=== PATIENT | female | born 1990 | race Caucasian/White ===

== ENCOUNTER 2022-12-12 20:33 | Emergency (ER) | payer OTHER ==
[2022-12-12 21:01] VITALS: BP 123/52
--- NOTE | 2022-12-12 21:24 | ED Physician Documentation ---
History of Present Illness - Stated complaint Stated Complaint: FACIAL RASH/SWELLING - Chief complaint Chief Complaint: Wound - Additonal information Additional information: 32-year-old female presents emergency department for evaluation of concerns lip tingling/burning and mild swelling as well as tongue tingling. Patient had eaten dinner this evening which consisted of left over refried rice vegetables and ground beef with soy sauce. Shortly after she began to notice a burning and tingling in her lips. She looked in the mirror and thought that her lower lip was mildly swollen. She also felt burning in her tongue. She did apply ice to the lip. Currently 23 weeks . LMP 07/07/2022. G4, . Currently taking 162 mg of aspirin daily as prophylaxis in high risk . Patient recently moved to the [place] 3 weeks ago and is scheduled to establish with Brenda Chatman this upcoming Tuesday. Patient does have movement. No vaginal bleeding or loss of fluids. At baseline patient does have a geographic tongue. Per her her tongue does not appear swollen in comparison to baseline. Review of Systems Constitutional: denies: Fever, Chills Throat: reports: Other (Burning lips mild lip swelling. Tingling tongue) Cardiac: reports: Reviewed and negative Respiratory: reports: Reviewed and negative PD PAST MEDICAL HISTORY - Present Medications Home Medications: Ambulatory Orders Medication Instructions Recorded Confirmed Aspirin Chewable [St Van 2 tab PO DAILY 12/12/22 12/12/22 Aspirin] Pnv No.95/Ferrous Fum/Folic AC 1 tab PO DAILY 12/12/22 12/12/22 [ Tablet] - Allergies Allergies/Adverse Reactions: Allergies Allergy/AdvReac Type Severity Reaction Status Date / Time No Known Drug Allergies Allergy Verified 12/12/22 20:59 PD ED PE NORMAL - General General: Alert and oriented X 3, No acute distress. No: Well developed/nourished (Obese) - HEENT HEENT: Atraumatic, Moist mucous membranes, Pharynx benign, Other (No tongue or lip swelling noted. Patient does have a geographic tongue.) - Neck Neck: Supple, no meningeal sign, No adenopathy, No JVD - Abdomen Abdomen: Normal bowel sounds, Soft. No: Non tender (Uterus is palpable just at the level of the umbilicus. Limited bedside ultrasound reveals positive movement with a heart rate of 170.) - Back Back: No CVA TTP - Derm Derm: Normal color, Warm and dry, No rash - Extremities Extremities: No deformity - Neuro Neuro: Alert and oriented X 3, binder chainstitch 2-12 intact Eye Opening: Spontaneous Motor: Obeys Commands Verbal: Oriented GCS Score: 15 Results - Vitals Vitals: Vital Signs - 24 hr 12/12/22 20:55 Heart Rate 64 Respiratory 16 Rate Blood Pressure 123/52 L O2 Saturation 95 Oxygen O2 Source Room air PD Medical Decision Making - ED course Complexity details: considered differential, d/w patient, d/w family ED course: 32-year-old female who is 23 weeks presents to the ED for concerns of tongue and lip burning as well as mild tongue and lip swelling which has fully abated by the time of my evaluation. This follows eating some leftovers. She does not have any previous allergy history. On exam clinically there is nothing to suggest angioedema or anaphylaxis. She does have a geographic tongue at baseline and her reports that appears normal. She has no dysphonia labored breathing hypoxia or chest pain. I did do a limited brief ultrasound at the bedside and found a fetus with good movement and a heart rate measuring about 172. At this time clinically the patient does not appear to have any tongue or lip swelling. She may have had a brief allergic reaction that is fully dissipated at this juncture. As such she is discharged home. Recommended that if a similar event occurred it would be safe to take 25 mg of Benadryl and then return to the ER for reevaluation. She will follow closely with OB this upcoming Tuesday. Discharged home in stable condition with emergent return precautions Departure - Departure Disposition: 01 Home, Self Care Clinical Impression: Lip swelling Condition: Stable Record reviewed to determine appropriate education?: Yes Comments: Juan you are seen today because after eating dinner and you developed some burning in your lips and tongue and felt that your lip had been swollen. At the time of my exam here in the emergency department I do not notice any tongue or lip swelling. It is possible however that you had a brief allergic reaction that has fully subsided. I recommend That if you have a return of similar symptoms its okay to take a dose of Benadryl and then return to the ER. The limited ultrasound that we did the bedside today shows that the baby had good movement and normal heart rate. Continue to follow-up with Brenda Chatman on Tuesday as already scheduled.
== END 2022-12-12 21:42 | disposition home or self-care (01) ==
LOC: ED 20:33
DX: O99.891 Other specified diseases and conditions complicating pregnancy (principal); R22.0 Localized swelling, mass and lump, head; Z3A.23 23 weeks gestation of pregnancy
CPT/HCPCS: 99283

== ENCOUNTER 2022-12-22 06:38 | Outpatient (CLI) | payer OTHER ==
[2022-12-22 07:46] VITALS: BP 126/67
[2022-12-22 08:14] LABS: BILIRUBIN,URINE NEGATIVE (NEGATIVE); GLUCOSE, URINE (UA) NEGATIVE (NEGATIVE); KETONES,URINE (UA) NEGATIVE (NEGATIVE); LEUKOCYTE ESTERASE, URINE NEGATIVE (NEGATIVE); NITRITE,URINE NEGATIVE (NEGATIVE); OCCULT BLOOD,URINE NEGATIVE (NEGATIVE); PROTEIN,URINE NEGATIVE (NEGATIVE); UROBILINOGEN,URINE 0.2 (NORMAL) E.U./dL (NORMAL)
[2022-12-22 08:15] LABS: CLARITY,URINE CLEAR (CLEAR)
--- NOTE | 2022-12-22 08:51 | Labor Flowsheet ---
Labor Flowsheet Datetime Report Generated by CPN: 12/22/2022 08:51 Datetime: 12/22/2022 07:30 VITAL SIGNS NBP Sys/Bobbi/Mean (mmHg): 126 : 67 : 82 Pulse: 76
--- NOTE | 2022-12-22 09:54 | PROVIDER PROGRESS NOTE ---
- HPI Chief Complaint: Vaginal bleeding Current : Vital Signs Temperature 37.2 C 12/22/22 07:20 Heart Rate 74 12/22/22 07:20 Respiratory Rate 18 12/22/22 07:20 Blood Pressure 126/67 12/22/22 07:20 Temperature 37.2 C 12/22/22 08:10 Heart Rate 74 12/22/22 08:10 Respiratory Rate 18 12/22/22 08:10 Blood Pressure 126/67 12/22/22 08:10 O2 Saturation If not protocol: Oxygen Flow, liters/minute - Plan Plan: Juan presents today with c/o pressure and cramping in her lower abdomen in addition to new onset vaginal spotting this morning. She has been struggling with constipation for the past several weeks and has attempted to increase her fluid and fiber intake which has not helped in any significant way. She states last night she was straining with a bowel movement and felt something "bulge". It was difficult for her see so she had her look and he said it looked like there was something coming out of her vagina. She states she touched it with her finger and felt like it was more on her left than her right. She then became concerned that she may have caused some sort of infection from touching the area. She has a hx of UTIs in which have all been asymptomatic. She noticed the vaginal spotting when she was wiping after urinating. She is sure the bleeding was vaginal rather than rectal. She denies hemorrhoids. She denies urinary symptoms. She was able to mix mirilax in prune juice this morning and had a bowel movement which was softer. Vaginal examination reveals normal vaginal, perineal, and rectal tissues externally. No evidence of swelling or visible abnormality. Vaginal examination reveals normal vaginal tissue with normal vaginal discharge. No evidence of trauma or prolapse. Cervix appears closed, thick, and high. With bearing down a mild anterior cystocele is noted. FHR 130bpm Tocometry - no uterine contractions noted UA -collecting, results pending Plan: Pt released home with precautions. Has emergency contact information. Recommended daily stool softening or miriliax. Will treat for UTI if indicated by UA - will notify pt of results once received. Pt feels reassured. FINAL DIAGNOSIS: Constipation
== END 2022-12-22 08:10 | disposition home or self-care (01) ==
LOC: WFO 06:38 → FBP 06:43 → WFO 08:10
PROVIDERS: ATTEND Nurse Practitioner Obstetrics & Gynecology
DX: O26.859 Spotting complicating pregnancy, unspecified trimester (principal); O99.619 Diseases of the digestive system complicating pregnancy, unspecified trimester; K59.00 Constipation, unspecified; O34.80 Maternal care for other abnormalities of pelvic organs, unspecified trimester; N81.10 Cystocele, unspecified
CPT/HCPCS: 81001; 81003; 87086; 99213; 99214

== ENCOUNTER 2022-12-31 18:30 | Outpatient (CLI) | payer OTHER ==
[2022-12-31 19:09] VITALS: BP 107/44
[2022-12-31 19:21] LABS: RUPTURE OF MEMBRANES PLUS NEGATIVE (NEGATIVE)
--- NOTE | 2023-01-03 13:37 | PROVIDER PROGRESS NOTE ---
- HPI Chief Complaint: Leakage of vaginal fluid Current : Vital Signs Temperature 36.9 C 12/31/22 19:07 Heart Rate 70 12/31/22 19:07 Respiratory Rate 16 12/31/22 19:07 Blood Pressure 107/44 L 12/31/22 19:07 O2 Saturation 100 12/31/22 19:07 Temperature 36.9 C 12/31/22 19:07 Heart Rate 70 12/31/22 19:07 Respiratory Rate 16 12/31/22 19:07 Blood Pressure 107/44 L 12/31/22 19:07 O2 Saturation 100 12/31/22 19:07 If not protocol: Oxygen Flow, liters/minute - Procedures OB Procedure Performed: Other Diagnosis/Indication for NST: Other - Plan Plan: Juan presents to [facility] with concerns for increased vaginal discharge that seems watery to her. She denies vaginal bleeding, cramping or contractions. She reports +FM. She denies itching, burning or foul odor associated with the vaginal discharge. She states there is not continuous leaking but she is concerned because she has to wear a pad or a panty liner or she feels she will leak through. She reports the leaking is intermittent and she feels it could be urine but is unsure and wants to ensure it is not her amniotic fluid. FHR doppler 140s. ROM+ = negative Pt released home with precautions and feels reassured. She denies further questions or concerns at this time. FINAL DIAGNOSIS: Vaginal discharge, second trimester
== END 2022-12-31 19:40 | disposition home or self-care (01) ==
LOC: WFO 18:30 → FBP 18:32 → WFO 19:40
PROVIDERS: ATTEND Nurse Practitioner Obstetrics & Gynecology
DX: O99.891 Other specified diseases and conditions complicating pregnancy (principal); N89.8 Other specified noninflammatory disorders of vagina; Z3A.00 Weeks of gestation of pregnancy not specified
CPT/HCPCS: 59025; 84112; 99212; 99213

== ENCOUNTER 2023-01-05 07:54 | Outpatient (CLI) | payer OTHER ==
[2023-01-05 11:50] LABS: HGB - HEMOGLOBIN 11.7 g/dL (12.0-16.0); MEAN CORPUSCULAR HEMOGLOBIN 30.5 pg (27.0-31.0); MEAN CORPUSCULAR HGB CONC 32.5 g/dL (32.0-36.0); MEAN CORPUSCULAR VOLUME 93.8 fL (81.0-99.0); MEAN PLATELET VOLUME 11.5 fL (7.9-10.8); RED BLOOD COUNT 3.84 10^6/uL (4.20-5.40); RED CELL DISTRIBUTION WIDTH 13.3 % (12.0-15.0); WHITE BLOOD COUNT 9.2 x10^3/uL (4.8-10.8)
== END 2023-01-05 07:55 | disposition home or self-care (01) ==
LOC: LAB.N 07:54
PROVIDERS: ATTEND Nurse Practitioner Obstetrics & Gynecology
DX: Z36.9 Encounter for antenatal screening, unspecified (principal)
CPT/HCPCS: 36415; 82950; 85027

== ENCOUNTER 2023-02-11 16:26 | Outpatient (CLI) | payer OTHER ==
--- NOTE | 2023-02-14 14:55 | Ultrasound Report ---
PROCEDURE: OB F/U or Repeat INDICATIONS: UTERINE SIZE DATE DISCREPENCY OUTSIDE/PRIOR DATING DATA: First dating scan (date and location): Not available. Estimated date of delivery (ALINA) from first dating scan: 04/13/2023. The below data below was generated using the established ALINA of 04/13/2023 TECHNIQUE: Real-time scanning was performed of the fetus, with image documentation and biometric measurements. Endovaginal scanning: Not performed COMPARISON: None. FINDINGS: General: A single living intrauterine gestation is present. Presentation: Vertex Placenta: Placental position is posterior, without previa. Amniotic fluid index: 20.8 cm, largest pocket is 6.7 cm, 87th percentile for gestational age. heart rate: 135 beats per minute. Maternal cervical canal: Closed and 3.9 cm long; normal length is 2.5 cm or more. biometrics: Biparietal diameter: 8.5 cm, 34 weeks 2 days Head circumference: 31.3 cm, 35 weeks 1 day Abdominal circumference: 28.8 cm, 32 weeks 6 days Femur length: 6.2 cm, 31 weeks 6 days Estimated gestational age from initial scan: 31 weeks 2 days. Composite gestational age from present scan: 33 weeks 4 days Estimated weight and percentile: 2078 g, 88th percentile Measurement variability in biometric dating: +/- 10 days from 12-20 weeks gestation, +/- 2 weeks from 20-30 weeks gestation, +/- 3 weeks at 30 weeks gestation or more. Other: Maternal left ovary appears normal. Right ovary was not seen. IMPRESSION: 1. Single living intrauterine with estimated weight at the 88th percentile. 2. Amniotic fluid volume at the 87th percentile for gestational age. X line Reviewed by: Nadine Garsia MD on 02/14/2023 2:53 PM PDT Approved by: Nadine Garsia MD on 02/14/2023 2:53 PM PDT Station ID: [id number]
== END 2023-02-11 16:27 | disposition home or self-care (01) ==
LOC: DI 16:26
PROVIDERS: ATTEND Nurse Practitioner Obstetrics & Gynecology
DX: O26.843 Uterine size-date discrepancy, third trimester (principal); Z3A.33 33 weeks gestation of pregnancy

== ENCOUNTER 2023-03-04 08:48 | Outpatient (CLI) | payer OTHER ==
[2023-03-04 11:49] LABS: HCT - HEMATOCRIT 33.8 % (37.0-47.0); HGB - HEMOGLOBIN 10.9 g/dL (12.0-16.0); MEAN CORPUSCULAR HEMOGLOBIN 30.4 pg (27.0-31.0); MEAN CORPUSCULAR HGB CONC 32.2 g/dL (32.0-36.0); MEAN CORPUSCULAR VOLUME 94.2 fL (81.0-99.0); MEAN PLATELET VOLUME 10.9 fL (7.9-10.8); RED BLOOD COUNT 3.59 10^6/uL (4.20-5.40); RED CELL DISTRIBUTION WIDTH 13.8 % (12.0-15.0); WHITE BLOOD COUNT 7.9 x10^3/uL (4.8-10.8)
== END 2023-03-04 08:49 | disposition home or self-care (01) ==
LOC: LAB.N 08:48
PROVIDERS: ATTEND Nurse Practitioner Obstetrics & Gynecology
DX: R51.9 Headache, unspecified (principal)
CPT/HCPCS: 36415; 85027

== ENCOUNTER 2023-03-14 01:17 | Outpatient (CLI) | payer OTHER ==
[2023-03-14 02:37] LABS: RUPTURE OF MEMBRANES PLUS NEGATIVE (NEGATIVE)
[2023-03-14 02:41] VITALS: BP 124/75
--- NOTE | 2023-03-14 16:14 | PROVIDER PROGRESS NOTE ---
- HPI Chief Complaint: Leakage of vaginal fluid Current : Current EDU 04/13/23 Gestation 35 Weeks and 5 Days 4 Para 0 Vital Signs Temperature 36.5 C 03/14/23 01:45 Temperature 36.5 C 03/14/23 02:35 Heart Rate 86 03/14/23 02:35 Respiratory Rate 17 03/14/23 02:35 Blood Pressure 124/75 03/14/23 02:35 O2 Saturation 98 03/14/23 02:35 If not protocol: Oxygen Flow, liters/minute - Procedures OB Procedure Performed: NST NST Procedure: NST Procedure Start Date 03/14/23 Start Time 01:35 Stop Time 02:33 Vibroacoustic Stimulation Used No Patient States Movement Yes - Plan Plan: Juan is a 32yo who presents to [facility] with c/o vaginal leakage of fluid when she got up to use the bathroom in the middle of the night. She states she felt very worried that it could be her water breaking. She is very anxious. She states the fluid seemed clear to her and is not entirely sure if it was urine but wanted to make sure it was not. She denies vaginal bleeding or contractions. She reports +FM. NST reactive. FHR baseline 140s, moderate variability, + accels, no decels No contractions appreciated via tocometry. ROM+ NEGATIVE. No gross leakage of fluid noted upon external examination. Nitrizine negative. GBS collected - pending Assessment: 32yo @ 35.5wks gestation by LMP c/w 10.1wk U/S False labor <37wks gestation FHR Category I Plan: Pt released home with precautions and feels reassured. She denies further questions or concerns at this time. FINAL DIAGNOSIS: False labor <37wks gestation, third trimester
== END 2023-03-14 02:55 | disposition home or self-care (01) ==
LOC: WFO 01:17 → FBP 01:20 → WFO 02:55
PROVIDERS: ATTEND Nurse Practitioner Obstetrics & Gynecology
DX: O47.03 False labor before 37 completed weeks of gestation, third trimester (principal); Z3A.35 35 weeks gestation of pregnancy
CPT/HCPCS: 59025; 84112; 87081; 87797; 99213

== ENCOUNTER 2023-03-25 10:02 | Outpatient (CLI) | payer OTHER ==
[2023-03-25 13:18] VITALS: BP 122/58
--- NOTE | 2023-03-27 20:26 | PROCEDURE REPORT ---
- HPI Diagnosis/Indication for NST: Other Current EDU 04/13/23 Gestation 37 Weeks and 2 Days 4 Para 3 Vital Signs Temperature 36.7 C 03/25/23 10:15 Heart Rate 68 03/25/23 10:15 Respiratory Rate 18 03/25/23 10:15 Blood Pressure 122/58 L 03/25/23 10:15 O2 Saturation 100 03/25/23 10:15 Temperature 36.7 C 03/25/23 11:30 Heart Rate 68 03/25/23 11:30 Respiratory Rate 18 03/25/23 11:30 Blood Pressure 122/58 L 03/25/23 11:30 O2 Saturation 100 03/25/23 10:15 If not protocol: Oxygen Flow, liters/minute - NST Procedure NST Procedure Start Date 03/25/23 Start Time 10:50 Stop Time 11:21 Vibroacoustic Stimulation Used No Patient States Movement Yes - Results and Plan Findings/Impression: NST reactive. FHR baseline 140s, moderate variability, + accels, no decels No contractions appreciated via tocometry FINAL DIAGNOSIS: Obesity complicating , third trimester Hx of recurrent loss
== END 2023-03-25 11:25 | disposition home or self-care (01) ==
LOC: WFO 10:02 → FBP 10:04 → WFO 11:25
PROVIDERS: ATTEND Nurse Practitioner Obstetrics & Gynecology
DX: O99.213 Obesity complicating pregnancy, third trimester (principal); Z3A.37 37 weeks gestation of pregnancy; Z87.59 Personal history of other complications of pregnancy, childbirth and the puerperium
CPT/HCPCS: 59025

== ENCOUNTER 2023-04-01 08:57 | Outpatient (CLI) | payer OTHER ==
[2023-04-01 09:21] VITALS: BP 110/74
--- NOTE | 2023-04-01 10:15 | PROCEDURE REPORT ---
- HPI Diagnosis/Indication for NST: Other Current EDU 04/13/23 Gestation 38 Weeks and 2 Days 4 Para 0 Vital Signs Temperature 36.8 C 04/01/23 09:12 Heart Rate 72 04/01/23 09:12 Respiratory Rate 18 04/01/23 09:12 Blood Pressure 110/74 04/01/23 09:12 Temperature 36.8 C 04/01/23 09:12 Heart Rate 72 04/01/23 09:12 Respiratory Rate 18 04/01/23 09:12 Blood Pressure 110/74 04/01/23 09:12 O2 Saturation If not protocol: Oxygen Flow, liters/minute - NST Procedure NST Procedure Start Date 04/01/23 Start Time 09:06 Stop Time 11:21 Vibroacoustic Stimulation Used No Patient States Movement Yes - Results and Plan Findings/Impression: NST reactive. FHR baseline 125, moderate variability, + accels, no decels No contractions appreciated via tocometry DIAGNOSIS: Obesity complicating , third trimester
== END 2023-04-01 10:18 | disposition home or self-care (01) ==
LOC: WFO 08:57 → FBP 09:01 → WFO 10:18
PROVIDERS: ATTEND Nurse Practitioner Obstetrics & Gynecology
DX: O99.213 Obesity complicating pregnancy, third trimester (principal); Z3A.38 38 weeks gestation of pregnancy
CPT/HCPCS: 59025

== ENCOUNTER 2023-04-06 18:08 | Outpatient (CLI) | payer OTHER ==
[2023-04-06 18:41] VITALS: BP 120/64
--- NOTE | 2023-04-06 21:09 | Ultrasound Report ---
PROCEDURE: OB Biophysical Profile INDICATIONS: Non-reactive NST OUTSIDE/PRIOR DATING DATA: Last menstrual period (LMP): 07/07/2022. LMP-based estimated date of delivery (ALINA): Unknown. First dating scan (date and location): 02/11/2023. Estimated date of delivery (ALINA) from first dating scan: 04/13/2023. TECHNIQUE: Real-time scanning was performed of the fetus, with image documentation and biometric kendal surements. Biophysical profile was also obtained. COMPARISON: 02/11/2023 FINDINGS: General: A single living intrauterine gestation is present. Presentation: Vertex Placenta: Placental position is posterior, without previa. Amniotic fluid index: 15.2 cm, within normal limits for gestational age. heart rate: 141 beats per minute. Maternal cervical canal: 6.3 cm long; normal length is 2.5 cm or more. biometrics: Estimated gestational age from initial scan: 39 weeks 0 days. Biophysical profile: Tone: 2 points. Movement: 2 points. Respiration: 2 points. Largest pocket of fluid: 2 points. Umbilical artery Doppler: 2.2, 2.4, 1.9 IMPRESSION: Single live intrauterine with ultrasound gestational age of 39 weeks 0 days. ARAM is within normal limits. BPP 8 out of 8 Reviewed by: Steffany Ye MD on 04/06/2023 9:08 PM PDT Approved by: Steffany Ye MD on 04/06/2023 9:08 PM PDT Station ID: [id number]
--- NOTE | 2023-04-08 11:27 | PROCEDURE REPORT ---
- HPI Diagnosis/Indication for NST: Other Current EDU 04/13/23 Gestation 39 Weeks and 0 Days 4 Para 0 Vital Signs Temperature 36.8 C 04/06/23 18:31 Heart Rate 60 04/06/23 18:31 Respiratory Rate 19 04/06/23 18:31 Blood Pressure 120/64 04/06/23 18:31 Temperature 36.8 C 04/06/23 18:31 Heart Rate 60 04/06/23 18:31 Respiratory Rate 19 04/06/23 18:31 Blood Pressure 120/64 04/06/23 18:31 O2 Saturation If not protocol: Oxygen Flow, liters/minute - NST Procedure NST Procedure Start Date 04/06/23 Start Time 18:34 Stop Time 18:54 Vibroacoustic Stimulation Used No Patient States Movement Yes - Results and Plan Findings/Impression: NST reactive. FHR baseline 140s, moderate variability, + accels, no decels No contractions appreciated via tocometry BPP 8/8
== END 2023-04-06 20:15 | disposition home or self-care (01) ==
LOC: WFO 18:08 → FBP 18:09 → WFO 20:15
PROVIDERS: ATTEND Nurse Practitioner Obstetrics & Gynecology
DX: O99.213 Obesity complicating pregnancy, third trimester (principal); Z3A.39 39 weeks gestation of pregnancy
CPT/HCPCS: 59025; 99215

== ENCOUNTER 2023-04-08 11:00 | Outpatient (CLI) | payer OTHER ==
[2023-04-08 12:20] VITALS: BP 117/52
--- NOTE | 2023-04-17 11:06 | PROCEDURE REPORT ---
- HPI Diagnosis/Indication for NST: Other Current EDU 04/13/23 Gestation 39 Weeks and 2 Days 4 Para 0 Vital Signs Temperature 37.7 C 04/08/23 12:18 Heart Rate 83 04/08/23 12:18 Respiratory Rate 17 04/08/23 12:18 Blood Pressure 117/52 L 04/08/23 12:18 O2 Saturation 100 04/08/23 12:18 Temperature 36.9 C 04/08/23 12:38 Heart Rate 83 04/08/23 12:18 Respiratory Rate 17 04/08/23 12:18 Blood Pressure 117/52 L 04/08/23 12:18 O2 Saturation 100 04/08/23 12:18 If not protocol: Oxygen Flow, liters/minute - NST Procedure NST Procedure Start Date 04/08/23 Start Time 11:35 Stop Time 12:20 Vibroacoustic Stimulation Used No Patient States Movement Yes - Results and Plan Findings/Impression: NST reactive. FHR baseline 140s, moderate variability, + accel, no decels No contractions appreciated via tocometry
== END 2023-04-08 13:00 | disposition home or self-care (01) ==
LOC: WFO 11:00 → FBP 11:02 → WFO 13:00
PROVIDERS: ATTEND Nurse Practitioner Obstetrics & Gynecology
DX: O99.213 Obesity complicating pregnancy, third trimester (principal); Z3A.39 39 weeks gestation of pregnancy
CPT/HCPCS: 59025

== ENCOUNTER 2023-04-09 17:57 | Inpatient (IN) | payer OTHER ==
[2023-04-09] MEDS ORDERED: METHYLERGONOVINE 0.2 MG/ML VIAL IM PRN (18:28)
[2023-04-09] MEDS ORDERED: miSOPROStoL 200 MCG TABLET BC PRN (18:28)
[2023-04-09] MEDS ORDERED: CARBOPROST TROMETHAMINE 250 MCG/ML AMP IM PRN (18:28)
[2023-04-09] MEDS ORDERED: lidocaine 1% 20 ML MDV ID PRN (18:28)
[2023-04-09] MEDS ORDERED: OXYTOCIN 10 UNIT/ML VIAL IM PRN (18:28)
[2023-04-09] MEDS ORDERED: TRANEXAMIC ACID IN NACL 1,000 MG/100 ML BAG IV PRN (18:28)
[2023-04-09] MEDS ORDERED: OXYTOCIN/SODIUM CHLORIDE 500 ML IV PRN (18:28)
[2023-04-09] MEDS ORDERED: SODIUM CHLORIDE FLUSH 0.9% 10 ML SYRINGE IVP PRN (18:28)
[2023-04-09 18:53] LABS: BASOPHILS % (AUTO) 0.2 %; EOSINOPHILS # (AUTO) 0.1 10^3/uL (0.0-0.7); EOSINOPHILS % (AUTO) 0.7 %; HCT - HEMATOCRIT 34.3 % (37.0-47.0); HGB - HEMOGLOBIN 11.2 g/dL (12.0-16.0); LYMPHOCYTES # (AUTO) 1.4 10^3/uL (1.5-3.5); LYMPHOCYTES % (AUTO) 15.6 %; MEAN CORPUSCULAR HEMOGLOBIN 30.3 pg (27.0-31.0); MEAN CORPUSCULAR HGB CONC 32.7 g/dL (32.0-36.0); MEAN CORPUSCULAR VOLUME 92.7 fL (81.0-99.0); MEAN PLATELET VOLUME 10.4 fL (7.9-10.8); MONOCYTES # (AUTO) 0.7 10^3/uL (0.0-1.0); MONOCYTES % (AUTO) 7.6 %; NEUTROPHILS # (AUTO) 6.8 10^3/uL (1.5-6.6); NEUTROPHILS % (AUTO) 75.5 %; PLT - PLATELET COUNT 205 10^3/uL (130-450); RED CELL DISTRIBUTION WIDTH 14.1 % (12.0-15.0)
--- NOTE | 2023-04-09 19:19 | HISTORY & PHYSICAL EXAMINATION ---
Admit History - Visit Reason Visit Reason: Other - : 4 Parity: 0 Premature: 0 Ectopic: 0 : 3 Care: positive: Doc Midwifery Risk/History: positive: Other Complications This : positive: None Smoking Status: Never smoker - Mother's Labs Mother's Blood Type: positive: O Mother's RH: positive: Negative GBS: positive: Group B Strep Positive Rubella Status: positive: Immune - HPI Current EDU 04/13/23 Gestation 39 Weeks and 3 Days 4 Vital Signs Temperature 36.8 C 04/09/23 18:37 Heart Rate 87 04/09/23 18:37 Respiratory Rate 18 04/09/23 18:37 Blood Pressure 119/74 04/09/23 18:37 Temperature 36.8 C 04/09/23 18:37 Heart Rate 87 04/09/23 18:37 Respiratory Rate 18 04/09/23 18:37 Blood Pressure 119/74 04/09/23 18:37 O2 Saturation If not protocol: Oxygen Flow, liters/minute - NST Procedure NST Procedure Start Time 11:35 Stop Time 12:20 Meds/Allgy - Home Medications Home Medications: Ambulatory Orders Medication Instructions Recorded Confirmed Aspirin Chewable [St Van 2 tab PO DAILY 12/12/22 04/09/23 Aspirin] Pnv No.95/Ferrous Fum/Folic AC 1 tab PO DAILY 12/12/22 04/09/23 [ Tablet] - Allergies Allergies/Adverse Reactions: Allergies Allergy/AdvReac Type Severity Reaction Status Date / Time No Known Drug Allergies Allergy Verified 12/12/22 20:59 Review of Systems - Constitutional Constitutional: denies: Fatigue, Fever, Chills, Malaise - Eyes Eyes: denies: Blurred vision, Spots in vision, Dipolpia - Cardiovascular Cariovascular: denies: Irregular heart rate, Palpitations, Chest pain, Edema - Gastrointestinal Gastrointestinal: denies: Constipation, Diarrhea, Change in bowel habits, Nausea, Vomiting - Genitourinary Genitourinary: denies: Dysuria - Integumentary Integumentary: denies: Rash, Pruritis - Neurological Neurological: denies: Headache - Psychiatric Psychiatric: denies: Depression, Anxiety - Hematologic/Lymphatic Hematologic/Lymphatic: denies: Anemia Physical - Abdominal Exam Vital Signs: Temp Pulse Resp BP Pulse Ox O2 Flow Rate 36.8 C 87 18 119/74 04/09/23 18:37 04/09/23 18:37 04/09/23 18:37 04/09/23 18:37 Contraction Frequency (min/apart): none Uterine Resting Tone: positive: Soft - Monitoring Heart Rate Baseline: 150 Strip Review: positive: Category I - Presentation Presentation: positive: Vertex - Vaginal Exam Membranes: positive: Membranes intact - Speculum Exam Speculum Exam Performed: positive: No Plan for Labor - Plan For Labor I expect patient to be DC'd or transferred within 96 hours.: Yes Plan for Labor: HPI: Juan is a 32yo @ 39.3wks gestation by LMP c/w 1st trimester ultrasound who presents to [facility] for elective induction of labor. 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 SVE in the office at 39.0wks was 1/50/-3, posterior and vertex. She denies contractions since that time. She denies vaginal bleeding or leakage of fluid and reports +FM. She has been a patient of [facility] since her transfer of care from the [facility] in [place] at 20 weeks gestation. She is obese with a pre- BMI of 40 and a current BMI of 42. She has received consistent care for the duration of her which has remained uncomplicated with the exception of extreme anxiety secondary to her history of recurrent loss. She has had twice weekly NSTs with once weekly AFIs since 36 weeks gestation. She is noted to be GBS positive and Rh negative. She will be admitted to [facility] for pre-induction cervical ripening with misoprostol. She will be continuously monitored per her request. She is supported by her Russ jolley. Dating criteria: LMP 07/07/2023 Initial U/S @ 10.0wks gestation c/w LMP dating Serial exams - agree sensitizer History: Term NSVB x 0. SAB x3. Last pap 10/2022-WNL, no hx abnormal. Denies history of gonorrhea, chlamydia, genital herpes, oral herpes or any other STI. Sexual partner does NOT have HSV (oral or genital). Medical Hx: no significant Surgical Hx: Rectal polyp removal 1994 (age 4); endoscopy & throat stretching 2020; wisdom teeth Social Hx: Monogamous with male partner. Stopped drinking alcohol due to . Denies current use of tobacco, marijuana or other recreational drugs. Reports that she is safe in current relationship. Family Hx: Denies family history of congenital anomalies, Cystic Fibrosis or chromosomal abnormalities. Allergies: NKDA Medications: PNV, ASA 81mg once daily course: O negative, antibody negative Rubella immune Genetic screening - negative CF negative; SMA negative FAS WNL. Posterior placenta, no previa. 3VC. ARAM WNL. Size c/w dating (EFW 88%tile) Glucola 78 Antibody negative; Rhogam administered 01/19/2023 COVID vaccine: 02/2021 x 2 Influenza vaccine: 10/10/2022 Tdap vaccine: 01/19/2023 GBS POSITIVE Physical exam: Normocephalic, atraumatic Heart RRR w/o M/G/R Lungs CTAB Abdomen gravid, soft, nontender FHR baseline 150s, moderate variability, + accels, no decels No contractions appreciated via tocometry SVE deferred EFW 3600g Bilateral LE's trace edema Assessment: 32yo @ 39.3wks gestation by LMP c/w 10.0wk U/S Obesity Hx recurrent loss GBS positive FHR Category I Plan: Admit to [facility] for pre-induction cervical ripening with 50mcg BC misoprostol q 4 hours. Continuous monitoring Initiate ampicillin for GBS prophylaxis with SROM or onset of labor Jacuzzi PRN. Nitrous oxide PRN. Epidural per maternal request. Anticipate .
[2023-04-09] MEDS: miSOPROStoL 100 MCG TABLET BC SCH ×2 (19:37→23:39)
[2023-04-09] MEDS ORDERED: AMPICILLIN 2 GM in SODIUM CHLORIDE 0.9% MINIBAG 100 ML IV ONE (19:39)
[2023-04-09] MEDS ORDERED: TERBUTALINE 1 MG/ML VIAL SUBQ PRN (19:39)
[2023-04-09] MEDS ORDERED: ACETAMINOPHEN 500 MG TABLET PO PRN (19:39)
[2023-04-09] MEDS ORDERED: AMPICILLIN 1 GM in SODIUM CHLORIDE 0.9% MINIBAG 100 ML IV SCH (23:45)
[2023-04-10] MEDS ORDERED: SODIUM CHLORIDE FLUSH 0.9% 10 ML SYRINGE IVP SCH (01:00)
[2023-04-10] MEDS: miSOPROStoL 100 MCG TABLET BC SCH (04:19)
[2023-04-10] MEDS: LACTATED RINGERS 1,000 ML IV SCH ×4 (05:50→23:42)
[2023-04-10] MEDS ORDERED: OXYTOCIN/SODIUM CHLORIDE 500 ML IV SCH ×2 (09:00→09:22)
--- NOTE | 2023-04-10 09:06 | PROVIDER PROGRESS NOTE ---
Labor Progress Note - Uterine Monitoring Uterine Monitoring Mode: positive: External toco Contraction Frequency (min/apart): 3-5 Contraction Intensity: positive: Mild Uterine Resting Tone: positive: Soft - Monitoring Monitor Mode: positive: External ultrasound Heart Rate Baseline: 150 Heart Rate Variability: positive: Moderate (6-25 bmp) Accelerations: positive: Present, 15x15 Decelerations: positive: None Strip Review: positive: Category I - Vaginal Exam Dilation (in cm): 2 Effacement (%): 70 Station: -3 Cervical Position: Midposition - Labor Progress Note Labor Progress Note/Additional Text: S: Patient comfortable in bed. She has desired to ambulate but secondary to inability to trace uterine contractions she was encouraged by nursing staff to lay in the bed. She was experiencing uncomfortable contractions which she rated 3-4/10 on a pain scale but they have seemed to resolve now. She denies vaginal bleeding or leakage of fluid. Her Russ is supportive at the bedside. O: FHR baseline 150s, moderate variability, + accels, no decels Contractions palpate mild every 3-6 minutes with soft resting tone SVE 2/70/-3, midposition, soft. Vertex. A: 32yo @ 39.4wks gestation by LMP c/w 10wk U/S Recurrent loss Obesity GBS positive FHR Category I P: Initiate pitocin via IV with titration per protocol. Continuous monitoring. Encouraged ambulation and position changes. Jacuzzi PRN. Nitrous oxide PRN. Epidural per maternal request. Anticipate .
[2023-04-10] MEDS ORDERED: AMPICILLIN 2 GM in SODIUM CHLORIDE 0.9% MINIBAG 100 ML IV ONE (19:30)
--- NOTE | 2023-04-10 22:28 | PROVIDER PROGRESS NOTE ---
Labor Progress Note - Uterine Monitoring Uterine Monitoring Mode: positive: External toco Contraction Frequency (min/apart): 2-3 Contraction Intensity: positive: Moderate to strong Uterine Resting Tone: positive: Soft - Monitoring Monitor Mode: positive: External ultrasound Heart Rate Baseline: 150 Heart Rate Variability: positive: Moderate (6-25 bmp) Accelerations: positive: Absent Decelerations: positive: None Strip Review: positive: Category I - Vaginal Exam Dilation (in cm): 5 Effacement (%): 80 Station: -1 Cervical Position: Midposition - Labor Progress Note Labor Progress Note/Additional Text: S: Patient breathing and crying through contractions. Currently right side lying with peanut ball. She is using nitrous oxide for pain management and feeling and increased urge to push and significant pelvic pressure. Her Russ is supportive at the bedside. O: FHR baseline 150s, moderate variability with intermittent periods of minimal variability, no accels, no decels Contractions palpate moderate to strong every 2-3 minutes with soft resting tone SVE 5/80/-1, midposition, vertex. AROM x 4 hours Pitocin @ 20mU/mL A: 32yo @ 39.4wks gestation by LMP c/w 10wk U/S Recurrent loss (all prior to 20wks gestation) Obesity GBS positive FHR Category I P: Continue pitocin at 20mU/mL. Continuous monitoring. 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 Encouraged position changes. Nitrous oxide PRN. Jacuzzi PRN. Epidural per maternal request. Anticipate .
--- NOTE | 2023-04-10 22:35 | PROVIDER PROGRESS NOTE ---
Labor Progress Note - Uterine Monitoring Uterine Monitoring Mode: positive: External toco Contraction Frequency (min/apart): 3-8 Contraction Intensity: positive: Mild to moderate Uterine Resting Tone: positive: Soft - Monitoring Monitor Mode: positive: External ultrasound Heart Rate Baseline: 150 Heart Rate Variability: positive: Moderate (6-25 bmp) Accelerations: positive: Present, 15x15 Decelerations: positive: None Strip Review: positive: Category I - Vaginal Exam Dilation (in cm): 4 Effacement (%): 70 Station: -2 Cervical Position: Midposition - Labor Progress Note Labor Progress Note/Additional Text: S: Patient feeling some increased frequency and intensity of contractions when she is sitting or laying in bed. She is not feeling contractions as much when she is standing up. Her Russ is supportive at the bedside. O: FHR baseline 150s, moderate variability, + accels, no decel Contractions palpate mild to moderate every 2-8 minutes with soft resting tone SVE 4/70/-2, midposition, soft and vertex. AROM occurred at 1813 and is noted to be a moderate amount of clear fluid A: 32yo @ 39.4wks gestation by LMP c/w 10wk U/S Recurrent loss GBS positive FHR category I P: Continue pitocin with titration per protocol for induction of labor. Continuous monitoring. Initiate ampicillin for GBS prophylaxis per protocol. Encouraged ambulation and position changes. Nitrous oxide PRN. Jacuzzi PRN. Epidural per maternal request. Anticipate .
[2023-04-10] MEDS ORDERED: ROPIVACAINE 0.2% 200 MG/100 ML BAG EP ONE (22:45)
[2023-04-10] MEDS: AMPICILLIN 1 GM in SODIUM CHLORIDE 0.9% MINIBAG 100 ML IV SCH (23:06)
[2023-04-11] MEDS ORDERED: METOCLOPRAMIDE 10 MG/2 ML VIAL IVP PRN ×2 (00:10→07:57)
[2023-04-11] MEDS ORDERED: NALBUPHINE 10 MG/ML AMP IVP PRN (00:10)
[2023-04-11] MEDS ORDERED: ROPIVACAINE 0.2% 200 MG/100 ML BAG EP PRN (00:10)
[2023-04-11] MEDS ORDERED: NALOXONE 0.4 MG/ML VIAL IVP PRN ×3 (00:10→08:29)
[2023-04-11] MEDS ORDERED: diphenhydrAMINE INJ 50 MG/ML VIAL IVP PRN (00:10)
[2023-04-11] MEDS ORDERED: ONDANSETRON 4 MG/2 ML VIAL IVP PRN ×2 (00:10→07:57)
--- NOTE | 2023-04-11 00:17 | ANESTHESIA ---
Pre-Anesthesia VS, & Labs - Diagnosis IOL - Procedure Labor epidural Vital Signs: Temp Pulse Resp BP Pulse Ox O2 Flow Rate 36.8 C 87 18 119/74 04/09/23 18:37 04/09/23 18:37 04/09/23 18:37 04/09/23 18:37 Height: 5 ft 6 in Weight (kg): 117.48 kg Body Mass Index: 41.8 BMI Classification: Morbidly Obese - Is Patient ?: Yes - Lab Results Current Lab Results: Laboratory Tests 04/09/23 19:29: Blood Type O NEGATIVE, Antibody Screen NEGATIVE 04/09/23 18:49: Blood Type Recheck O NEGATIVE 04/09/23 18:49: WBC 9.0, RBC 3.70 L, Hgb 11.2 L, Hct 34.3 L, MCV 92.7, MCH 30.3, MCHC 32.7, RDW 14.1, Plt Count 205, MPV 10.4, Neut # (Auto) 6.8 H, Lymph # (Auto) 1.4 L, Wilkin # (Auto) 0.7, Eos # (Auto) 0.1, Baso # (Auto) 0.0, Absolute Nucleated RBC 0.00, Nucleated RBC % 0.0 Lab results reviewed: Yes Fish Bones: 04/09/23 18:49 Home Medications and Allergies Active Medications Acetaminophen (Acetaminophen 500 Mg Tablet) 1,000 mg PO Q8H PRN PRN Reason: Mild Pain or Fever>38C(100.4F) Carboprost Tromethamine (Carboprost Tromethamine 250 Mcg/Ml Amp) 250 mcg IM Q15M PRN PRN Reason: Step 4: Hemorrhage protocol Stop: 04/14/23 18:32 Diphenhydramine HCl (Diphenhydramine Inj 50 Mg/Ml Vial) 12.5 - 25 mg IVP Q6HR PRN PRN Reason: ITCHING Ephedrine Sulfate (Ephedrine 50 Mg/Ml Vial) 5 mg IVP Q5M PRN PRN Reason: For SBP<100;give until SBP>100 Oxytocin/Sodium Chloride (Pitocin/Sodium Chloride) 500 mls @ 999 mls/hr IV PRN PRN; Protocol PRN Reason: POST- HEMORR PREVENTION Stop: 04/14/23 18:32 Tranexamic Acid (Tranexamic 1,000 Mg/100ml-Nacl) 1,000 mg in 100 mls @ 600 mls/hr IV .ONCE PRN PRN Reason: EBL >1200mL and within 3hr Stop: 04/14/23 18:32 Lactated Ringer's (Lr) 1,000 mls @ 100 mls/hr IV .Q10H [facility] Last Admin: 04/10/23 23:42 Dose: 100 mls/hr Oxytocin/Sodium Chloride (Pitocin/Sodium Chloride) 500 mls @ 2 mls/hr IV TITR STEPHANIE; Protocol Last Titration: 04/10/23 15:45 Dose: 20 milliunit/min, 20 mls/hr Ampicillin Sodium 1 gm/ Sodium (Chloride) 100 mls @ 200 mls/hr IV Q4H [facility] Last Admin: 04/10/23 23:06 Dose: 200 mls/hr Ropivacaine (Naropin 0.2%) 200 mg in 100 mls @ 8 mls/hr EP PRN PRN; Protocol PRN Reason: PAIN Lidocaine HCl (Lidocaine 1% 20 Ml Mdv) 20 ml ID .ONCE PRN PRN Reason: PERINEAL REPAIR Stop: 04/14/23 18:32 Methylergonovine Maleate (Methylergonovine 0.2 Mg/Ml Vial) 0.2 mg IM .ONCE PRN PRN Reason: Step 2: Hemorrhage protocol Stop: 04/14/23 18:32 Metoclopramide HCl (Metoclopramide 10 Mg/2 Ml Vial) 10 mg IVP Q6HR PRN PRN Reason: Nausea / Vomiting Misoprostol (Misoprostol 200 Mcg Tablet) 800 mcg BC .ONCE PRN PRN Reason: Step 3: Hemorrhage protocol Stop: 04/14/23 18:32 Misoprostol (Misoprostol 100 Mcg Tablet) 50 mcg BC Q4H [facility] Last Admin: 04/10/23 04:19 Dose: 50 mcg Nalbuphine HCl (Nalbuphine 10 Mg/Ml Amp) 2.5 - 5 mg IVP Q4H PRN PRN Reason: ITCHING Naloxone HCl (Naloxone 0.4 Mg/Ml Vial) 0.1 mg IVP Q2M PRN PRN Reason: RR<8 Ondansetron HCl (Ondansetron 4 Mg/2 Ml Vial) 4 mg IVP Q6HR PRN PRN Reason: Nausea / Vomiting Oxytocin (Oxytocin 10 Unit/Ml Vial) 10 unit IM .ONCE PRN PRN Reason: Step one: If no IV access Stop: 04/14/23 18:32 Sodium Chloride (Sodium Chloride Flush 0.9% 10 Ml Syringe) 10 ml IVP 0100,0900,1700 STEPHANIE Sodium Chloride (Sodium Chloride Flush 0.9% 10 Ml Syringe) 10 ml IVP PRN PRN PRN Reason: NEEDED PER PROVIDER ORDERS Terbutaline Sulfate (Terbutaline 1 Mg/Ml Vial) 0.25 mg SUBQ .ONCE PRN PRN Reason: Tachystole Aspirin Chewable [St Van Aspirin] 2 tab PO DAILY 12/12/22 Pnv No.95/Ferrous Fum/Folic AC [ Tablet] 1 tab PO DAILY 12/12/22 Allergies/Adverse Reactions: Allergies Allergy/AdvReac Type Severity Reaction Status Date / Time No Known Drug Allergies Allergy Verified 12/12/22 20:59 Anes History & Medical History - Anesthetic History Anesthesia Complications: reports: No previous complications, Other-see comment (hx of difficult epidural placement) Family history of Anesthesia Complications: Denies Family history of Malignant Hyperthermia: Denies - Medical History Cardiovascular: reports: None Pulmonary: reports: None Gastrointestinal: reports: GERD Urinary: reports: None Musculoskeletal: reports: None Endocrine/Autoimmune: reports: None Blood Disorders: reports: None Smoking Status: Never smoker - Obstetrical History : 4 Parity: 0 Events: reports: Other Complications: reports: None Exam General: Alert, Oriented x3, Cooperative Dental: WNL Mouth Openin Fingerbreadth Neck Mobility: Normal Mallampati classification: II Thyromental Distance: 4-6 cm Respiratory: Lungs clear Cardiovascular: Regular rate Plan Anesthesia Type: Epidural Regional Block: Per Surgeon's request for Post Op pain control Consent for Procedure(s) Verified and Reviewed: Yes Code Status: Attempt Resuscitation ASA classification: 3-Severe systemic disease Is this case an emergency?: No
[2023-04-11] MEDS: ePHEDrine 50 MG/ML VIAL IVP PRN ×2 (00:39→00:43)
[2023-04-11] MEDS: AMPICILLIN 1 GM in SODIUM CHLORIDE 0.9% MINIBAG 100 ML IV SCH (03:04)
[2023-04-11] MEDS: LACTATED RINGERS 1,000 ML IV SCH (05:02)
[2023-04-11] MEDS ORDERED: CITRIC ACID/SODIUM CITRATE 15 ML UDC PO ONE (06:34)
--- NOTE | 2023-04-11 06:43 | PROVIDER PROGRESS NOTE ---
Labor Progress Note - Uterine Monitoring Uterine Monitoring Mode: positive: External toco Contraction Frequency (min/apart): 3-5 Contraction Intensity: positive: Mild to moderate - Monitoring Monitor Mode: positive: External ultrasound Heart Rate Baseline: 130s Heart Rate Variability: positive: Moderate (6-25 bmp) Accelerations: positive: Present, 15x15 Decelerations: positive: None Strip Review: positive: Category I - Vaginal Exam Dilation (in cm): 5 Effacement (%): 80 Station: -1 Cervical Position: Midposition - Labor Progress Note Labor Progress Note/Additional Text: S: Patient crying in bed. She is comfortable with her epidural at this time but is feeling very discouraged and extremely anxious. She has been unable to sleep because she is very worried about her baby. Secondary to late decelerations and hypotension following placement of her epidural her anxiety increased significantly. She and her have discussed their preferences for mode of delivery and they would like to proceed with a delivery at this time. O: FHR baseline 130s, moderate variability, + accels, no decels Contractions palpate mild to moderate every 3-5 minutes with soft resting tone SVE 5/80/-1, midposition and vertex. AROM x 12 hours Pitocin currently at 12mU/mL S/p 3 doses of ampicillin for GBS prophylaxis per protocol A: 32yo @ 39.5wks gestation History of recurrent loss Obesity GBS positive FHR Category I P: call circuit worker physician notified of patient desire to proceed with delivery secondary to failure to progress. Pitocin discontinued now. Anticipate primary delivery.
[2023-04-11] MEDS ORDERED: LIDOCAINE MPF 2%-EPI 1:200000 20 ML VIAL ONE (06:56)
[2023-04-11] MEDS ORDERED: OXYTOCIN 10 UNIT/ML VIAL ONE (07:00)
[2023-04-11] MEDS ORDERED: SODIUM CHLORIDE 0.9% 10 ML VIAL IVP ONE (07:05)
[2023-04-11] MEDS ORDERED: ePHEDrine 50 MG/ML VIAL IVP ONE (07:05)
[2023-04-11] MEDS ORDERED: BUPIVACAINE 0.5% PF 10 ML VIAL ONE (07:06)
[2023-04-11] MEDS ORDERED: fentaNYL 100 MCG/2 ML VIAL IVP PRN (07:57)
[2023-04-11] MEDS ORDERED: HYDROmorphone 0.5 MG/0.5 ML SYRINGE IVP PRN (07:57)
[2023-04-11] MEDS ORDERED: ATROPINE ABBOJECT 1 MG/10 ML SYRINGE IVP PRN (07:57)
[2023-04-11] MEDS ORDERED: ePHEDrine 50 MG/ML VIAL IVP PRN (07:57)
[2023-04-11] MEDS ORDERED: MORPHINE 2 MG/ML CARPUJECT IVP PRN (07:57)
[2023-04-11] MEDS ORDERED: LACTATED RINGERS 1,000 ML IV SCH (08:00)
[2023-04-11] MEDS ORDERED: LACTATED RINGERS 1,000 ML IV ONE (08:17)
[2023-04-11] MEDS ORDERED: hydrALAZINE INJ 20 MG/ML VIAL IVP PRN ×2 (08:29)
[2023-04-11] MEDS ORDERED: LABETALOL 20 MG/4 ML SYRINGE IVP PRN ×3 (08:29)
[2023-04-11] MEDS ORDERED: OXYTOCIN/SODIUM CHLORIDE 500 ML IV PRN (08:29)
[2023-04-11] MEDS ORDERED: NIFEdipine 10 MG CAPSULE PO PRN (08:29)
[2023-04-11] MEDS ORDERED: AZITHROMYCIN INJ 1,000 MG in SODIUM CHLORIDE 0.9% 250 ML IV SCH ×4 (09:00)
--- NOTE | 2023-04-11 09:51 | ANESTHESIA POST OP EVALUATION ---
Anesthesia Post Eval - Post Anesthesia Eval Vitals: Last Vital Signs Temp 37.2 C 04/11/23 08:55 Pulse 79 04/11/23 09:00 Resp 12 04/11/23 09:00 BP 127/52 L 04/11/23 09:00 Pulse Ox 100 04/11/23 09:00 O2 Flow Rate CV Function Including HR & BP: Stable Pain Control: Satisfactory Nausea & Vomiting: Negative Mental Status: Baseline Respiratory Status: Airway Patent Hydration Status: Satisfactory Anesthesia Complications: None
[2023-04-11] MEDS: KETOROLAC 30 MG/ML VIAL IVP SCH ×3 (10:23→21:20)
[2023-04-11] MEDS: oxyCODONE 5 MG TABLET PO PRN ×4 (10:46→22:28)
--- NOTE | 2023-04-11 13:06 | HISTORY & PHYSICAL EXAMINATION ---
HPI - Admitted From Admitted from: OB - History Obtained From Records Reviewed: RN notes reviewed History obtained from: Other (CNM) Exam limitations: No limitations - History of Present Illness HPI Comment/Other: induction of labor with no labor after miso and pitocin up to 20 mu over night for many hours. epidural and some late decels with bp drop. still only 5 cm. patient desires to have primary c section. risks and benefits discussed. consents signed. PMH/PSH - Past Medical History Cardiovascular: positive: None Respiratory: positive: None Endocrine/Autoimmune: positive: None GI: positive: GERD : positive: None Musculoskeletal: positive: None MRSA Hx?: No Social & Family Hx - Social History Does the pt smoke?: No Smoking Status: Never smoker Does the pt drink ETOH?: No Does the pt have substance abuse?: No - POLST Patient has POLST: No Meds/Allgy - Home Medications Home Medications: Ambulatory Orders Medication Instructions Recorded Confirmed Aspirin Chewable [St Van 2 tab PO DAILY 12/12/22 04/09/23 Aspirin] Pnv No.95/Ferrous Fum/Folic AC 1 tab PO DAILY 12/12/22 04/09/23 [ Tablet] - Allergies Allergies/Adverse Reactions: Allergies Allergy/AdvReac Type Severity Reaction Status Date / Time No Known Drug Allergies Allergy Verified 12/12/22 20:59 Exam - Vital Signs Vital Signs: Vital Signs x48h Temp Pulse Pulse Resp BP BP Pulse Ox 04/11/23 10:48 98.4 F 57 L 16 128/60 100 04/11/23 09:50 98.8 F 74 16 122/59 L 100 04/11/23 09:00 79 12 127/52 L 100 04/11/23 08:55 99.0 F 85 15 84/59 L 100 04/11/23 08:51 87 14 84/59 L 99 04/11/23 08:42 89 18 112/62 99 04/11/23 08:35 89 16 100/45 L 97 04/11/23 08:31 83 17 93/40 L 99 04/11/23 08:25 81 15 80/66 L 98 04/11/23 08:19 99.5 F 78 17 104/52 L 99 Results - Lab Results Fish Bones: 04/09/23 18:49 Impression/Plan - Problem List Problem List: failed induction at 39 weeks. bmi 41 c section for delivery.
--- NOTE | 2023-04-11 13:09 | OPERATIVE REPORT ---
Operative Report - General Admit Date: 04/09/23 Procedure Date: 04/11/23 Planned Procedure: primarly low transverse c section Pre-Op Diagnosis: failed inductio of labor at term. bmi 41 Procedure Performed: primary low transverse c section - Procedure Note Primary Surgeon: Debra Garg MD Secondary Surgeon: Brenda Chatman CNM Anesthesia Provider: Pedro Junior CRNA Anesthesia Technique: Epidural, Spinal Pathology: none IV Fluids (mL): 800 Estimated Blood Loss (mL): 400 Urine Output (mL): 200 Indications: failed induction of labor. maternal anxiety Findings: live male Apgars 8/9, weighing 3754 grams. 8lb 4.4 oz Complications: none - Other Other Information/Narrative: Patient brought to OR after failed induction. epidural not adequate so spinal placed. prepped and draped normal. catheter in place. SCDs on. time out done. Anesthesia tested and adequate. Pfanensteil skin incision made. Fascia transected. Peritoneum entered. Dean retractor placed and rolled down. Low transverse uterine incision made and stretched. Baby's head elevated out of pelvis and baby delivered. baby dried and stimulated. cord clamped and cut after about a minute. handed off to Dr. Livingston who was present. Placenta delivered with gentle traction. uterus cleared of clots and debris. contracted well. Incision closed with 0-Monocryl suture in running locked fashion. 2nd horizontal imbricating layer placed. Irrigation done. no bleeding. Dean removed. Fascia closed with 0-Vicryl suture. irrigation done. sub Q space closed with 2-0 Vicryl. skin closed with derek and a Prevena drain is placed. Uterus expressed. Patient brought to PACU in stable condition.
[2023-04-11] MEDS: ACETAMINOPHEN 500 MG TABLET PO SCH (18:32)
[2023-04-11] MEDS: ENOXAPARIN 40 MG/0.4 ML SYRINGE SUBQ SCH (21:19)
[2023-04-11] MEDS: DOCUSATE SODIUM 100 MG CAPSULE PO SCH (21:20)
--- NOTE | 2023-04-11 22:02 | Ultrasound Report ---
PROCEDURE: Duplex Ext Veins Left INDICATIONS: L calf tenderness sp surgery positive zulema's sign TECHNIQUE: Real-time imaging, as well as color and pulse Doppler interrogation, were performed of the lower extr emity deep veins from the inguinal ligament to the popliteal fossa. COMPARISON: None. FINDINGS: The deep veins are normally compressible, and free of intraluminal thrombus. Color and pu lse Doppler demonstrate normal phasic intraluminal flow. There is normal augmentation response to di stal compression maneuver. IMPRESSION: 1. No evidence of deep venous thrombosis in the left lower extremity. Reviewed by: Monico Rico MD on 04/11/2023 10:01 PM PDT Approved by: Monico Rico MD on 04/11/2023 10:01 PM PDT Station ID: [id number]
[2023-04-12] MEDS: ACETAMINOPHEN 500 MG TABLET PO SCH ×2 (02:22→14:10)
[2023-04-12] MEDS: oxyCODONE 5 MG TABLET PO PRN ×4 (03:35→20:26)
[2023-04-12 05:15] LABS: HCT - HEMATOCRIT 28.1 % (37.0-47.0); HGB - HEMOGLOBIN 8.9 g/dL (12.0-16.0); MEAN CORPUSCULAR HEMOGLOBIN 30.6 pg (27.0-31.0); MEAN CORPUSCULAR HGB CONC 31.7 g/dL (32.0-36.0); MEAN CORPUSCULAR VOLUME 96.6 fL (81.0-99.0); MEAN PLATELET VOLUME 10.2 fL (7.9-10.8); RED BLOOD COUNT 2.91 10^6/uL (4.20-5.40); RED CELL DISTRIBUTION WIDTH 14.4 % (12.0-15.0); WHITE BLOOD COUNT 9.4 x10^3/uL (4.8-10.8)
[2023-04-12] MEDS: ENOXAPARIN 40 MG/0.4 ML SYRINGE SUBQ SCH (08:13)
[2023-04-12] MEDS: IBUPROFEN 600 MG TABLET PO SCH ×2 (08:14→16:37)
[2023-04-12] MEDS: DOCUSATE SODIUM 100 MG CAPSULE PO SCH ×3 (08:15→20:33)
[2023-04-12] MEDS ORDERED: IBUPROFEN 600 MG TABLET PO SCH (09:00)
--- NOTE | 2023-04-12 09:06 | PROVIDER PROGRESS NOTE ---
Subjective - Prog Note Date Prog Note Date: 04/12/23 Prog Note Time: 09:01 - Subjective Pt reports feeling: Improved Subjective: feeling well. Some pulling on left of incision, tape repositioned and better. left leg is not longer painful. last night was hurting and had doppler studies that were negative. is up and walking around and walking to bathroom and that is going well. no BM since . prune juice works well for her so will have her use that. Objective - Vital Signs/Intake & Output Reviewed Vital Signs: Yes Vital Signs: Vital Signs x48h Temp Pulse Resp BP Pulse Ox 04/12/23 08:25 97.7 F 64 18 102/58 L 100 04/12/23 04:40 98.4 F 67 18 111/50 L 100 Intake & Output: Intake & Output 04/09/23 04/10/23 04/11/23 04/12/23 23:59 23:59 23:59 23:59 Intake Total 2286.933 2444.766 500 Output Total 1875 400 Balance 2286.933 569.766 100 - Objective General Appearance: positive: No acute distress Respiratory: positive: No respiratory distress Cardiovascular: positive: Regular rate & rhythm Abdomen: positive: Non-tender, No distention - Lab Results Fish Bones: 04/12/23 05:10 Other Labs: Lab Results x24hrs 04/12/23 Range/Units 05:10 WBC 9.4 (4.8-10.8) x10^3/uL RBC 2.91 L (4.20-5.40) 10^6/uL Hgb 8.9 L (12.0-16.0) g/dL Hct 28.1 L (37.0-47.0) % MCV 96.6 (81.0-99.0) fL MCH 30.6 (27.0-31.0) pg MCHC 31.7 L (32.0-36.0) g/dL RDW 14.4 (12.0-15.0) % Plt Count 157 (130-450) 10^3/uL MPV 10.2 (7.9-10.8) fL - Diagnostic Imaging Diagnostic Imaging Results: positive: Final report reviewed Assessment/Plan - Problem List (1) Delivery by section Impression: healing well. routine care. encourage ambulation. discussed what happens with the Prevena and derek after discharge. to remove on Tuesday. Prune juice for constipation. Probable discharge tomorrow.
[2023-04-13] MEDS: ACETAMINOPHEN 500 MG TABLET PO SCH ×3 (00:25→17:03)
[2023-04-13] MEDS: IBUPROFEN 600 MG TABLET PO SCH ×4 (00:26→22:58)
[2023-04-13] MEDS: DOCUSATE SODIUM 100 MG CAPSULE PO SCH (08:33)
[2023-04-13] MEDS: ENOXAPARIN 40 MG/0.4 ML SYRINGE SUBQ SCH (08:37)
[2023-04-13] MEDS: PRENATAL VITAMIN TABLET PO SCH (09:38)
[2023-04-13] MEDS: oxyCODONE 5 MG TABLET PO PRN ×2 (12:13→19:05)
[2023-04-13] MEDS ORDERED: FERRIC GLUCONATE 125 MG in SODIUM CHLORIDE 0.9% 100ML 100 ML IV SCH (18:00)
--- NOTE | 2023-04-13 21:44 | PROVIDER PROGRESS NOTE ---
Subjective - Prog Note Date Prog Note Date: 04/13/23 Prog Note Time: 04:00 - Subjective Pt reports feeling: Improved Subjective: Comfortable. Appropriate lochia. Ambulating. Voiding. Tolerating regular diet. . Mood is ok, feeling anxious. Objective - Vital Signs/Intake & Output Reviewed Vital Signs: Yes Vital Signs: Vital Signs x48h Temp Pulse Resp BP Pulse Ox 04/13/23 21:37 98.6 F 64 18 116/54 L 100 04/13/23 17:12 98.1 F 62 14 110/68 100 04/13/23 13:47 98.1 F Intake & Output: Intake & Output 04/10/23 04/11/23 04/12/23 04/13/23 23:59 23:59 23:59 23:59 Intake Total 2286.933 3544.766 1400 Output Total 1875 400 Balance 2286.933 7343.797 7468 - Objective General Appearance: positive: No acute distress Respiratory: positive: No respiratory distress Abdomen: positive: Other (Dressing c/d/i, appropriately tender) Skin: positive: Color nml Extremities: positive: Non-tender Neurologic/Psychiatric: positive: Oriented x3 - Lab Results Fish Bones: 04/12/23 05:10 Assessment/Plan - Problem List (1) care following delivery Impression: 32yo s/p PCD 7/3 for NRFHT POD#2 - Continue and postoperative care - Anticipate discharge home tomorrow (2) Acute postoperative anemia due to expected blood loss Impression: Iron infusion ordered
[2023-04-14] MEDS: DOCUSATE SODIUM 100 MG CAPSULE PO SCH ×2 (00:06→09:11)
[2023-04-14] MEDS ORDERED: diphenhydrAMINE 25 MG CAPSULE PO PRN (00:32)
[2023-04-14] MEDS: ACETAMINOPHEN 500 MG TABLET PO SCH ×3 (01:35→09:12)
[2023-04-14] MEDS: oxyCODONE 5 MG TABLET PO PRN ×3 (01:35→13:48)
[2023-04-14] MEDS: IBUPROFEN 600 MG TABLET PO SCH ×2 (07:02→13:48)
--- NOTE | 2023-04-14 08:40 | DISCHARGE SUMMARY ---
Discharge Summary Admit Date: 04/09/23 Discharge Date: 04/14/23 Discharging Provider: Pancho Sarkar MD Code Status: Attempt Resuscitation Condition at Discharge: Good Discharge Disposition: 01 Home, Self Care - DIAGNOSES Admission Diagnoses: 39 weeks gestation Obesity Recurrent loss Discharge Diagnoses with Status of Each Condition: 39 weeks gestation Obesity Recurrent loss Failed induction of labor Status post primary low-transverse section Delivery of live hernández - HPI History of Present Illness: Subjective Patient reports she is doing well. Lochia appropriate. Denies heavy bleeding. Ambulating. Pelvic and abdominal pain well-controlled. Tolerating oral intake. Diet: Regular. Voiding without difficulty. Passing flatus. Denies BM. Patient is bonding with baby in room Breast feeding going well Denies feeling lightheaded, dizzy or excessively fatigued. Objective General: Alert, oriented, no apparent distress. Cardiovascular: Regular rate. Regular rhythm. Lungs: No increased work of breathing. Abdomen: Uterus firm. Below umbilicus. No guarding or rebound. Extremities: No pain on palpation. No cords palpated. Distal pulses intact. Incision: Clean, dry, and intact. - HOSPITAL COURSE Hospital Course: Patient was admitted at 39 weeks gestation for induction of labor. She received misoprostol then oxytocin, maxed out at 5 cm but did not progress further than 5 cm. She had some epidural use hypotension with late decelerations, but this resolved. After not progressing, decision was made to proceed with primary low- transverse section. Surgery was uncomplicated. Apgars of 8/9. course was unremarkable and she was discharged on postoperative day 3. weight 3754 g. - ALLERGIES Allergies/Adverse Reactions: Allergies Allergy/AdvReac Type Severity Reaction Status Date / Time No Known Drug Allergies Allergy Verified 12/12/22 20:59 - MEDICATIONS Home Medications: Ambulatory Orders Medication Instructions Recorded Confirmed Aspirin Chewable [St Van 2 tab PO DAILY 12/12/22 04/09/23 Aspirin] Pnv No.95/Ferrous Fum/Folic AC 1 tab PO DAILY 12/12/22 04/09/23 [ Tablet] Ferrous Sulfate 325 mg PO BID #60 tab 04/14/23 Ibuprofen [Motrin] 600 mg PO Q6H PRN #30 tab 04/14/23 oxyCODONE [Roxicodone] 5 mg PO Q4H PRN #20 tablet 04/14/23 - LABS Result Diagrams: 04/12/23 05:10 - FOLLOW UP Follow Up: With Pancho Sarkar MD in 1 week - TIME SPENT Time Spent in Discharge (Minutes): 30
[2023-04-14 08:44] VITALS: BP 100/62
--- NOTE | 2023-04-14 09:13 | Discharge Plan ---
Discharge Plan Problem Reviewed?: Yes Disposition: Home, Self Care Condition: Good Diet: Regular Activity Restrictions: Additional Comments Shower Restrictions: No Driving Restrictions: Yes (If taking opioid pain medications) Weight Bearing: Partial Weight Instruction Topics: C Section Dc, Depression No Smoking: If you smoke, Please STOP! Call for help. Follow-up with: Pancho Sarkar MD [Provider Admit Priv/Credential] -
[2023-04-14] MEDS: PRENATAL VITAMIN TABLET PO SCH (10:15)
[2023-04-14] MEDS: ENOXAPARIN 40 MG/0.4 ML SYRINGE SUBQ SCH (10:15)
--- NOTE | 2023-04-15 10:33 | Labor Flowsheet ---
Labor Flowsheet Datetime Report Generated by CPN: 04/15/2023 10:33 Datetime: 04/11/2023 07:15 Pulse: 111 SpO2 (%): 100 LaborFlag: Labor Datetime: 04/11/2023 07:01 VITAL SIGNS NBP Sys/Bobbi/Mean (mmHg): 105 : 56 : 67 Datetime: 04/11/2023 06:45 UTERINE ACTIVITY Monitor Mode: External Contraction Comments: Contractions not tracing due to maternal position ASSESSMENT A Monitor Mode: External US FHR Baseline Rate : 140 Variability: Minimal - Undetectable to <=5 bpm Accelerations: None Decelerations: None Category: Category II Datetime: 04/11/2023 06:30 Frequency (min): 3-4 Quality: Mild Duration (sec): 60-70 Pattern: Normal: <= 5 Contractions in 10 Minutes Resting Tone (Palpate): Relaxed Datetime: 04/11/2023 06:25 MEDICATIONS Pitocin (milliunits): Discontinued Datetime: 04/11/2023 06:15 Monitor Interventions for UA: Hardesty Adjusted FHR Baseline Changes: No Baseline Change Datetime: 04/11/2023 05:45 Oxygen Method: Room Air Datetime: 04/11/2023 05:38 COMMUNICATION Communication: Call/Page Placed to Provider Communication Comments: Pt would like provider at bedside to discuss progress and options, CNM en r oute. Datetime: 04/11/2023 04:30 Monitor Interventions for FHR: Ultrasound Adjusted Actions for Decelerations: Side to Side Comments: Break in tracing due to maternal repositioning Datetime: 04/11/2023 04:29 Temperature (C): 36.9 Datetime: 04/11/2023 04:28 Patient Position/Activity: Right Tilt; Semi-Fowlers Datetime: 04/11/2023 04:25 Anesthesia Level Check: T8- Ribs Anesthesia Comments: Left side T8, Right side L1 Datetime: 04/11/2023 04:24 Patient Care Comments: 1000 ml emptied from guerrero bag Datetime: 04/11/2023 03:09 Antibiotics: Ampicillin IV 1 Gm Datetime: 04/11/2023 00:59 I/O Interventions: Guerrero Cath Inserted Datetime: 04/11/2023 00:42 Magnesium/Antihypertensives: Ephedrine IV (mg) @ 5 Datetime: 04/10/2023 23:29 Epidural Procedure: Test Dose Datetime: 04/10/2023 22:35 PROCEDURE TIME OUT Procedure Verify: Correct Patient Identity; Correct Side and Site are Marked; Accurate Procedure Co nsent Form; Agreement on Procedure to be Done; Correct Patient Position; Relevant Images and Results are Properly Labeled and Displayed; Addressed Need to Administer Antibiotics or Fluids for Irrigation ; Safety Precautions Based on Patient History or Medication Use ANESTHESIA Anesthesia Plans: Epidural Epidural Positioning: Sitting Datetime: 04/10/2023 22:05 VAGINAL EXAM Dilatation (cm): 5.0 Effacement (%): 80 Station: -1 Exam by: Barrera MICHELLEM Datetime: 04/10/2023 21:30 Respirations: 18 Datetime: 04/10/2023 20:00 Pitocin Checklist: At Least 1 Acceleration of 15 bpm x 15 Seconds in 30 Minutes or Adequate Variabi lity; No More than 1 Late Deceleration Occurred in Past 30 Minutes; No More than 2 Variable Decelerat ions > 60 Seconds in Duration and decreasing >60 bpm in 30 minutes; No More than 5 Uterine Contractio ns in 10 Minutes for any 20 Minute Interval; Uterus Palpates Soft between Contractions Datetime: 04/10/2023 19:59 Pain Assessment Comments: Nitrous started, education done with pt Datetime: 04/10/2023 18:27 Hygiene: Shower Datetime: 04/10/2023 18:13 Membrane Status: Ruptured Membranes Rupture Method: Artificial Amniotic Fluid Color: Clear Amniotic Fluid Amount: Moderate Amniotic Fluid Odor: Normal Datetime: 04/10/2023 16:32 PATIENT CARE IV/Blood Work: New IV Bag Hung Datetime: 04/10/2023 08:29 Vaginal Bleeding: None Cervix, Consistency: Soft Cervix, Position: Midposition Datetime: 04/10/2023 07:00 ASSESSMENT B Monitor Mode: External US FHR Baseline Rate : 135 Variability: Moderate 6-25 bpm Accelerations: 15X15 Decelerations: None Category: Category I Datetime: 04/10/2023 05:19 Stage of : Labor Temperature Route: Oral Datetime: 04/10/2023 02:12 PAIN Pain Scale: 3 Pain Presence: Intermittent Pain Type: Cramping; Contraction Pain Location: Abdomen; Back Datetime: 04/09/2023 23:29 Provider Notified (Name): Brenda Lurdes CNM Datetime: 04/09/2023 19:36 Cervical Ripening Agents: Cytotec @ 50 mcg Datetime: 04/09/2023 18:24 MATERNAL ASSESSMENT Level of Consciousness: Alert DTR's/Clonus: DTRs 3+; No Clonus Headache: Denies Breath Sounds, Left: Clear and Equal Breath Sounds, Right: Clear and Equal Nausea/Vomiting: Denies RUQ Epigastric Pain: Denies TEACHING Instructional Method: Verbal; Patient Instructed; Family/Support Person Instructed; Verbalized Unde rstanding Plan of Care: Plan of Care Discussed; Vaginal Delivery; Labor; Induction Unit Routine: [place] to Room; Call M[place]; Bed; Visiting Policy; Waiting Areas; Unit Personnel; Handw ashing; Flu/Illness Precautions; Monitoring; Safety/Fall Risk Prevention; Diet/Nutrition Servic es; Bathroom Privileges; Medications Labor/Induction: Labor Stages; Cervical Ripening; Induction Related: Common Discomforts of ; Maternal Physical Changes; Maternal Emotional C hanges; Nutrition; Hydration; Activity and Rest
== END 2023-04-14 14:30 | disposition home or self-care (01) | DRG 787 ==
LOC: WFO 17:57 → FBP 18:01 → WFO 18:27 → INTOOBSV 18:28 → FBP 18:28 → UNDOADMOB 18:28 → FBP 04-10 09:33 → UNDOADMOB 04-10 09:33 → FBP 04-10 09:33 → OBSVTOIN 04-12 00:01 → INTOOBSV 04-12 00:01 → UNDODISIN 04-14 14:30
PROVIDERS: ADMIT Nurse Practitioner Obstetrics & Gynecology; ATTEND Obstetrics & Gynecology
PROC: 10907ZC Drainage of Amniotic Fluid, Therapeutic from Products of Conception, Via Natural or Artificial Opening (ICD-10-PCS; 2023-04-10)
PROC: 10D00Z1 Extraction of Products of Conception, Low, Open Approach (ICD-10-PCS; principal; 2023-04-11 07:30)
DX: O26.23 Pregnancy care for patient with recurrent pregnancy loss, third trimester (principal); D62 Acute posthemorrhagic anemia; O99.214 Obesity complicating childbirth; O61.0 Failed medical induction of labor; Z37.0 Single live birth; O76 Abnormality in fetal heart rate and rhythm complicating labor and delivery; O99.824 Streptococcus B carrier state complicating childbirth; O99.344 Other mental disorders complicating childbirth; F41.8 Other specified anxiety disorders; Z3A.39 39 weeks gestation of pregnancy; E66.01 Morbid (severe) obesity due to excess calories; O90.81 Anemia of the puerperium
CPT/HCPCS: 36415; 85025; 85027; 86850; 86900; 86901; 93971; A9270; G0378; J1650; J2916; J7040; J7120; 96365; 96366; 96367; 96368; 96375; 96376

== ENCOUNTER 2023-05-31 20:10 | Emergency (ER) | payer OTHER ==
--- NOTE | 2023-05-31 20:34 | ED Physician Documentation ---
History of Present Illness - Stated complaint Stated Complaint: RT KNEE PX - Chief complaint Chief Complaint: General - History obtained from History obtained from: Patient - Additonal information Additional information: She is 7 weeks from a . She developed some pain in the popliteal fossa yesterday and is worried about DVT. No history of DVT. No chest pain or trouble breathing. No trauma. PD PAST MEDICAL HISTORY - Past Medical History Cardiovascular: None Respiratory: None Endocrine/Autoimmune: None GI: GERD : None Musculoskeletal: None - Past Surgical History Past Surgical History: No - Present Medications Home Medications: Ambulatory Orders Medication Instructions Recorded Confirmed Aspirin Chewable [St Van 2 tab PO DAILY 12/12/22 04/09/23 Aspirin] Pnv No.95/Ferrous Fum/Folic AC 1 tab PO DAILY 12/12/22 04/09/23 [ Tablet] Ferrous Sulfate 325 mg PO BID #60 tab 04/14/23 Ibuprofen [Motrin] 600 mg PO Q6H PRN #30 tab 04/14/23 oxyCODONE [Roxicodone] 5 mg PO Q4H PRN #20 tablet 04/14/23 - Allergies Allergies/Adverse Reactions: Allergies Allergy/AdvReac Type Severity Reaction Status Date / Time No Known Drug Allergies Allergy Verified 12/12/22 20:59 - Social History Does the pt smoke?: No Smoking Status: Never smoker Does the pt drink ETOH?: No Does the pt have substance abuse?: No - Immunizations Immunizations are current?: Yes - POLST Patient has POLST: No PD ED PE NORMAL - Vitals Vital signs reviewed: Yes - General General: Alert and oriented X 3, No acute distress - Extremities Extremities: Other (She is tender in the popliteal fossa. No obvious leg swelling or discoloration. Normal pedal pulses. No knee tenderness.) - Neuro Neuro: Alert and oriented X 3, Normal speech Results - Vitals Vitals: Vital Signs - 24 hr 05/31/23 20:20 Temperature 37.1 C Heart Rate 65 Respiratory 16 Rate Blood Pressure 119/78 O2 Saturation 99 Oxygen O2 Source Room air - Rads (name of study) DVT ultrasound negative per RDMS Relevant Findings:: Prelim report reviewed Departure - Departure Disposition: 01 Home, Self Care Clinical Impression: Leg pain Qualifiers: Laterality: right Qualified Code(s): M79.604 - Pain in right leg Condition: Good Record reviewed to determine appropriate education?: Yes Instructions: ED Strain Muscle Ext Comments: No evidence of DVT in the leg. Probably muscular then. No evidence of Johns's cyst or superficial venous thrombosis either. Tylenol as needed for pain and you can apply heat packs. Return for new or worsening symptoms. Follow-up with your primary care physician if symptoms are persistent in about a week. Forms: PCP List
[2023-05-31 21:58] VITALS: BP 120/76; O2SAT 100
--- NOTE | 2023-05-31 22:11 | Ultrasound Report ---
PROCEDURE: Duplex Ext Veins Right INDICATIONS: RLE pain TECHNIQUE: Real-time imaging, as well as color and pulse Doppler interrogation, were performed of the lower extr emity deep veins from the inguinal ligament to the popliteal fossa. Attempted visualization of the ca lf veins was performed. COMPARISON: None. FINDINGS: The deep veins are normally compressible, and free of intraluminal thrombus. Color and pu lse Doppler demonstrate normal phasic intraluminal flow. There is normal augmentation response to di stal compression maneuver. IMPRESSION: No deep venous thrombosis of the visualized lower extremity. Reviewed by: Christian Thurman MD on 05/31/2023 10:10 PM PDT Approved by: Christian Thurman MD on 05/31/2023 10:10 PM PDT Station ID: [id number]
== END 2023-05-31 21:56 | disposition home or self-care (01) ==
LOC: ED 20:10
DX: M79.604 Pain in right leg (principal); Z79.82 Long term (current) use of aspirin
CPT/HCPCS: 99283; 99284

== ENCOUNTER 2023-09-22 08:00 | Outpatient (CLI) | payer OTHER ==
[2023-09-22 21:59] LABS: FECAL OCCULT BLOOD (FIT) NEGATIVE (NEGATIVE)
== END 2023-09-22 23:59 | disposition home or self-care (01) ==
LOC: LAB.R 08:00
PROVIDERS: ATTEND Family Medicine
DX: R53.83 Other fatigue (principal); R23.8 Other skin changes; R19.5 Other fecal abnormalities
CPT/HCPCS: 82274; 83993

== ENCOUNTER 2023-09-29 07:35 | Outpatient (CLI) | payer OTHER ==
[2023-09-29 12:36] LABS: CALCIUM 9.2 mg/dL (8.5-10.3); CREATININE 0.7 mg/dL (0.6-1.3); POTASSIUM 3.6 mmol/L (3.5-4.5)
[2023-09-29 12:50] LABS: ESTIMATED AVERAGE GLUCOSE 85 mg/dL (70-100); HEMOGLOBIN A1c% 4.6 % (4.27-6.07)
[2023-09-29 13:11] LABS: THYROID STIMULATING HORMONE 2.34 uIU/mL (0.34-5.60)
[2023-09-29 13:16] LABS: FERRITIN 25.5 ng/mL (11.0-306.8)
== END 2023-09-29 07:36 | disposition home or self-care (01) ==
LOC: LAB.N 07:35
PROVIDERS: ATTEND Family Medicine
DX: R53.83 Other fatigue (principal); R23.8 Other skin changes; R19.5 Other fecal abnormalities
CPT/HCPCS: 36415; 80048; 82728; 83036; 84443

== ENCOUNTER 2023-10-04 07:24 | Outpatient (CLI) | payer OTHER ==
[2023-10-04 12:29] LABS: BASOPHILS % (AUTO) 0.4 %; EOSINOPHILS # (AUTO) 0.1 10^3/uL (0.0-0.7); EOSINOPHILS % (AUTO) 1.9 %; HCT - HEMATOCRIT 40.5 % (37.0-47.0); HGB - HEMOGLOBIN 12.5 g/dL (12.0-16.0); LYMPHOCYTES # (AUTO) 1.6 10^3/uL (1.5-3.5); LYMPHOCYTES % (AUTO) 33.3 %; MEAN CORPUSCULAR HGB CONC 30.9 g/dL (32.0-36.0); MEAN CORPUSCULAR VOLUME 90.6 fL (81.0-99.0); MEAN PLATELET VOLUME 11.2 fL (7.9-10.8); MONOCYTES # (AUTO) 0.4 10^3/uL (0.0-1.0); MONOCYTES % (AUTO) 7.7 %; NEUTROPHILS # (AUTO) 2.6 10^3/uL (1.5-6.6); NEUTROPHILS % (AUTO) 56.5 %; PLT - PLATELET COUNT 254 10^3/uL (130-450); RED BLOOD COUNT 4.47 10^6/uL (4.20-5.40); RED CELL DISTRIBUTION WIDTH 13.1 % (12.0-15.0); WHITE BLOOD COUNT 4.7 x10^3/uL (4.8-10.8)
[2023-10-04 12:40] LABS: % IRON SATURATION 24 % (20-50); ALBUMIN 4.1 g/dL (3.2-5.5); ALBUMIN/GLOBULIN RATIO 1.4 (1.0-2.2); ALKALINE PHOSPHATASE 65 IU/L (42-121); ALT ALANINE AMINOTRANSFERASE 12 IU/L (10-60); AST ASPARTATE AMINOTRANSFERASE 13 IU/L (10-42); BILIRUBIN,TOTAL 0.5 mg/dL (0.2-1.0); BUN - BLOOD UREA NITROGEN 11 mg/dL (6-20); CALCIUM 9.1 mg/dL (8.5-10.3); CARBON DIOXIDE - CO2 26 mmol/L (21-32); CHLORIDE 106 mmol/L (101-111); CHOL/HDL RATIO 3.1 (<4.4); CHOLESTEROL 159 mg/dL; CREATININE 0.6 mg/dL (0.6-1.3); GFR - MDRD 117 (>89); GLUCOSE 83 mg/dL (74-104); HDL CHOLESTEROL 51 mg/dL; IRON 76 ug/dL (50-212); LDL CHOLESTEROL,CALCULATED 89 mg/dL; LDL/HDL RATIO 1.7 (<4.4); POTASSIUM 3.9 mmol/L (3.5-4.5); SODIUM 139 mmol/L (135-145); TOTAL IRON BINDING CAPACITY 312 ug/dL (250-450); TRANSFERRIN 223 mg/dL (203-362); TRIGLYCERIDES 94 mg/dL (48-352); VLDL CHOLESTEROL 19 mg/dL
== END 2023-10-04 07:25 | disposition home or self-care (01) ==
LOC: LAB.N 07:24
PROVIDERS: ATTEND Family Medicine
DX: Z00.00 Encounter for general adult medical examination without abnormal findings (principal); D64.9 Anemia, unspecified
CPT/HCPCS: 36415; 80053; 80061; 82607; 83540; 83721; 84443; 84466; 85025

== ENCOUNTER 2025-07-09 05:27 | Inpatient (IN) ==
[2025-07-09] MEDS ORDERED: ceFAZolin (2G) 2 GM in SODIUM CHLORIDE 0.9% MINIBAG 100 ML IV ONE (05:40)
[2025-07-09 06:52] LABS: HCT - HEMATOCRIT 37.4 % (37.0-47.0); HGB - HEMOGLOBIN 11.7 g/dL (12.0-16.0); MEAN PLATELET VOLUME 10.7 fL (7.9-10.8); NRBC ABSOLUTE COUNT (AUTO) 0.00 x10^3/uL; NUCLEATED RED BLOOD CELLS AUTO 0.0 /100WBC; PLT - PLATELET COUNT 214 10^3/uL (130-450); RED CELL DISTRIBUTION WIDTH 14.3 % (12.0-15.0)
--- NOTE | 2025-07-09 07:09 | HISTORY & PHYSICAL EXAMINATION ---
Admit History Smoking Status: Never smoker Other Maternal History Other Maternal History: 34-year-old -0-3-1 at 39 weeks 2 days gestation preventing for repeat low- transverse section. She has good movement. Denies loss of fluid. No NEWBERRY/BV or RUQP. No vaginal bleeding. Denies nausea and vomiting. Denies urinary urgency or dysuria. All other symptoms reviewed and were negative except per HPI. Course OB hx: G1: SAB @ 7+3 G2: 17+3 ; loss G3:SAB G4: 04/11/2023 @ 39+5 C/S, M- Can G5: Current, F-Harrietta or Yvonne PROBLEMS: Hx delivery: Desires RCS. Consult with Dr. Sarkar or Dr. Garg at 32wks gestation. Obesity: -LDASA @ 12wks -Reviewed importance of limiting weight gain in -3rd trimester growth ultrasound Anemia: -FeSO4 bid initiated at 26wks -Repeat CBC at 30wks Medical Hx: Obesity, recurrent loss Surgical Hx: delivery 2022; endoscopy & dilatation 2019; rectal polyp removal 1994 (age 4), wisdom teeth Social Hx: Russ is active duty . 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 Denies ETOH or IVDA. Never smoker. Reports she is safe at home. Family Hx:MFM- throat ca, COPD - mother; Alcoholism - mother Allergies: NKDA Medications: Aspirin, D3, PNV, FOB: Russ; Son Can LMP: 10/07/2024 ALINA by LMP: 07/14/2025 U/S: 11/25/2024 c/w lmp Final ALINA: 07/14/2025 Pre- weight: 275 BMI: 44.5 Blood type: O neg Rhogam 04/18/25 Antibody screen: neg CBC: PLT 260 HCT 38.5 HGB 12.7 Rubella: Immune VZV: Immune HBsAg: Negative HepC: NR RPR/AB-EIA: NR HIV: NR COVID: x 4 total PAP: 10/2022- WNL GC/CT: Negative HSV: denies in self and partner Genetic Testing: [facility] - neg; AFP negative FAS: WNL however incomplete views of spine and outflow tracts Placenta: posterior, no previa Cord: 3VC ARAM: 11. EFW: 30%tile 50gm GCT: 78 3 hr GTT: TDAP: 04/18 RHOGAM 04/18/2025 Breast Pump: Antibody screen: Negative 3rd trimester H/H PLT 10.9/34.6/219 3rd trimester RPR- NR RSV GBS: 06/17/2025- Negative Delivery plan: [facility] contraception sterilization. papers signed 04/19/25 HPI Current : Vital Signs Temperature 36.7 C 07/09/25 05:47 Pulse Rate 77 07/09/25 05:47 Respiratory Rate 16 07/09/25 05:47 Blood Pressure 111/46 L 07/09/25 05:47 Meds/Allgy Home Medications Ambulatory Orders Medication Instructions Recorded Confirmed vit no.95-ferrous 1 tab PO DAILY 12/12/22 fumarate 28 mg-folic acid 800 mcg tablet ferrous sulfate 325 mg (65 mg 325 mg PO BID #60 tabs 0 04/09/25 07/05/25 iron) tablet aspirin 81 mg chewable tablet 2 tab PO DAILY #90 tabs 05/28/25 07/05/25 Allergies Allergies Allergy/AdvReac Type Severity Reaction Status Date / Time No Known Drug Allergies Allergy Verified 07/05/25 15:11 PFSH Active Problems All Active Problems (Updated 07/09/25 @ 07:11 by Pancho Sarkar MD) Encounter for sterilization (Acute) Dysuria (Acute) Anemia complicating (Acute) Obesity complicating in third trimester (Acute) Rh negative status during in first trimester (Acute) Vaginal odor (Acute) Maternal care for scar from previous delivery (Acute) Medical History Medical History (Updated 07/09/25 @ 07:11 by Pancho Sarkar MD) Multigravida in first trimester Pain with urination Supervision of normal in second trimester 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 Surgical History Surgical History Status post dilation of esophageal narrowing Hx of rectal polypectomy (1994) [place] teeth removed H/O: Family History Family History Maternal grandmother Throat cancer Mother COPD (chronic obstructive pulmonary disease) Alcoholism Social History Social History (Updated 06/11/25 @ 11:25 by WALLACE Bonilla Smoking Status: Never smoker Do you dip or chew tobacco?: No Patient requests smoking cessation consult: No Initiate information on smoking cessation: No Do you feel safe in your home environment?: Yes History of physical, verbal, emotional, or financial abuse?: No POLST Patient has POLST: No Review of Systems Status of ROS: 10 or more systems reviewed and unremarkable except as noted in history and below Physical Abdominal Exam Vital Signs: Temp Pulse Resp BP 36.7 C 77 16 111/46 L 07/09/25 05:47 07/09/25 05:47 07/09/25 05:47 07/09/25 05:47 Other Notes Labor Progress Note/Additional Text: General: Alert, oriented, no acute distress Head: Normal cephalic atraumatic Eyes: PERRLA, extraocular motions intact. Respiratory: Normal rate of respiration. No accessory muscle use, normal respiratory effort. Abdomen: Gravid, nontender, nondistended Extremities: Normal range of motion Neuro: Oriented x3. Normal movements Psych: Appropriate mood and affect. Normal judgment and insight FHT: 130 BPM baseline, moderate variability, accelerations present, no decelerations. Reactive NST Aldie: quiescent Plan for Labor Plan For Labor I expect patient to be DC'd or transferred within 96 hours.: Yes Conclusion/Plan Problem List (1) Maternal care for scar from previous delivery: Plan: section was recommended. Risks, benefits and alternatives were discussed including but not limited to infection, bleeding that may require blood products or hysterectomy for life saving measures, injury to surrounding organs including but not limited to bowel, bladder, ureters, tubes and ovaries and/or the baby. Should injury occur it could require longer/additional surgery to repair. All patient's questions were answered. The patient stated understanding and desired to proceed. Qualifiers: Previous scar type: low transverse Qualified Code(s): O34.211 - Maternal care for low transverse scar from previous delivery (2) Encounter for sterilization: Plan: Bilateral tubal ligation at time of . (3) Obesity complicating in third trimester: Plan: 3 grams cefazolin preop Qualifiers: Obesity type affecting : severe obesity due to excess calories Qualified Code(s): O99.213 - Obesity complicating , third trimester; E66.01 - Morbid (severe) obesity due to excess calories (4) Rh negative status during in first trimester: Plan: RhoGAM if indicated Lab Results 07/09/25 06:40
[2025-07-09] MEDS ORDERED: CARBOPROST TROMETHAMINE 250 MCG/ML VIAL IM ONE ×2 (07:14→07:15)
[2025-07-09] MEDS ORDERED: METHYLERGONOVINE 0.2 MG/ML VIAL ONE (07:15)
[2025-07-09] MEDS: ACETAMINOPHEN 500 MG TABLET PO ONE (07:23)
[2025-07-09] MEDS: CITRIC ACID/SODIUM CITRATE 15 ML UDC PO ONE (07:25)
[2025-07-09] MEDS: LACTATED RINGERS 1,000 ML IV SCH (07:27)
[2025-07-09] MEDS ORDERED: fentaNYL 100 MCG/2 ML VIAL ONE (07:27)
[2025-07-09] MEDS ORDERED: ONDANSETRON 4 MG/2 ML VIAL ONE (07:41)
[2025-07-09] MEDS ORDERED: OXYTOCIN 10 UNIT/ML VIAL ONE ×2 (08:39→08:42)
[2025-07-09] MEDS ORDERED: OXYTOCIN/SODIUM CHLORIDE 500 ML IV PRN (09:51)
[2025-07-09] MEDS ORDERED: ONDANSETRON ODT 4 MG TABLET TL PRN (09:51)
--- NOTE | 2025-07-09 09:51 | OPERATIVE REPORT ---
Operative Report General Admit Date: 07/09/25 Procedure Data: Operation Date: 07/09/25 07:30 Proposed Procedures Section(Not Applicable) - Pancho Sarkar MD Bilateral Salpingectomy(Bilateral) - Pancho Sarkar MD Actual Procedures Section(Not Applicable) - Pancho Sarkar MD Bilateral Salpingectomy(Bilateral) - Pancho Sarkar MD Anesthesia Type Spinal Case Staff Anesthesia Provider: Jae Guerin Assisting Provider: Brenda Chatman Case Times Procedure Start: 07/09/25 08:19 Time out: 07/09/25 08:18 Pre-Op Diagnosis: Previous section, desires sterilization Post Op Diagnosis: Same, hemorrhage, status post repeat LTCS, BTL Procedure Note Intake, IV Amount (ml): 2,000 Estimated Blood Loss (ml): 1,000 Pathology: Bilateral fallopian tubes Complications: hemorrhage Other Other Information/Narrative: section was recommended. Risks, benefits and alternatives were discussed including but not limited to infection, bleeding that may require blood products or hysterectomy for life saving measures, injury to surrounding organs including but not limited to bowel, bladder, ureters, tubes and ovaries and/or the baby. Should injury occur it could require longer/additional surgery to repair. The patient stated understanding and desired to proceed. All questions were answered posed by patient. Prior to being taken to the OR, 3 g cefazolin IV were administered. The patient was taken to the operating room where regional anesthesia was found to be adequate. She was then prepared and draped in the usual sterile fashion in the dorsal supine position with a leftward tilt displacing the uterus. Cruz was draining to gravity. SCDs were on bilateral lower extremities. Time out was taken. A pfannenstiel skin incision was then made with the scalpel and carried through to the underlying layer of fascia. The fascia was incised in the midline and the incision extended laterally with the Melo scissors. The superior aspect of the facial incision was then grasped with the Monica clamps, elevated and the underlying rectus muscles dissected off sharply. Attention was then turned to the inferior aspect of this incision which in a similar fashion was grasped, elevated with the Monica clamps and the rectus muscle dissected off sharply. This did require careful dissection as the omentum was adhered to the incision. We dissected this off the lower section of the rectus fascia, but due to its proximity to the bladder, decision was made to ligate and transect the end of the omentum. The rectus muscles were in the midline. The peritoneum identified, and entered blutly. The peritoneal incision was then extended superiorly and inferiorly with good visualization of the bladder. The bladder blade was inserted. The vesicouterine peritoneum was identified, grasped with the pick-ups, and entered sharply with Metzenbaum scissors. This incision was then extended laterally and the bladder flap created digitally. The bladder vitor de was reinserted. The lower uterine segment was identified and incised in a transverse fashion with the scalpel. The uterine incision was then extended bluntly laterally. Artificial rupture of membranes demonstrated clear fluid. The bladder blade was removed. The fetus was in a cephalic presentation. The infants head delivered atraumatically. The anterior shoulders were delivered followed by the posterior shoulders then the remainder of the body. The infants mouth and nose were bulb suctioned. The umbilical cord was clamped times two and cut. The infant was handed to the pediatric team. The placenta was removed with gentle traction. Oxytocin was added to the IV fluid and was allowed to run freely. The uterus was exteriorized and cleared of all clots and debris. The uterine incision was inspected and found to be without any extensions and was repaired with 0 Vicryl in a running, locked fashion. A second imbricating layer was performed. Several additional [id number] stitches were required for hemostasis. Upon inspection, the repaired hysterotomy was found to be hemostatic. The right fallopian tube was then grasped with a Memo clamp at the fimbriated end and in the middle of the tube. The LigaSure device was then used to separate the fimbriated end from the ovary and sequential coagulation and cutting progressing up the mesosalpinx until the area of the cornua. At that point it was coagulated and cut, transecting the tube from the uterus. The same procedure was performed on the left side. Both tubes were sent to pathology. The uterus was firm and returned to the abdomen. The gutters were cleared of all clots and debris. Reexamination of the hysterotomy showed a small oozing area. Cautery was used to attempt to stop this, but venous oozing was still present, although slow. Surgicel was placed over this area. No pooling was noted. The muscle layer was examined and found to be hemostatic. The fascia was reapproximated with 0 Vicryl in a running fashion. The subcutaneous tissue was closed with 2-0 Vicryl. The skin was closed in a subcuticular fashion with 4-0 Monocryl. The patient tolerated the procedure well. Sponge, lap and needle counts were correct times three. The patient was taken to the recovery room in stable condition. I appreciate the assistance of SONIA Walker during this procedure, and the assistance in retraction, visualization, dissection, and overall assistance during the case were instrumental to the patient's wellbeing.
[2025-07-09] MEDS ORDERED: LACTATED RINGERS 1,000 ML IV SCH ×2 (10:00→11:00)
[2025-07-09] MEDS ORDERED: ATROPINE ABBOJECT 1 MG/10 ML SYRINGE IVP PRN (10:01)
[2025-07-09] MEDS ORDERED: METOCLOPRAMIDE 10 MG/2 ML VIAL IVP PRN (10:01)
[2025-07-09] MEDS ORDERED: ONDANSETRON 4 MG/2 ML VIAL IVP PRN (10:01)
[2025-07-09] MEDS ORDERED: NALOXONE 0.4 MG/ML VIAL IVP PRN (10:01)
[2025-07-09] MEDS ORDERED: ePHEDrine 50 MG/ML VIAL IVP PRN (10:01)
[2025-07-09] MEDS: KETOROLAC 30 MG/ML VIAL IVP SCH (10:22)
[2025-07-09] MEDS: ceFAZolin (3G) 3 GM in SODIUM CHLORIDE 0.9% MINIBAG 100 ML IV ONE (11:08)
--- NOTE | 2025-07-09 11:08 | ANESTHESIA POST OP EVALUATION ---
Anesthesia Post Eval Post Anesthesia Eval Vitals: Last Vital Signs Temp 36.8 C 07/09/25 10:40 Pulse 64 07/09/25 10:40 Resp 18 07/09/25 10:40 BP 109/51 L 07/09/25 10:40 Pulse Ox 97 07/09/25 10:40 CV Function Including HR & BP: Stable Pain Control: Satisfactory Nausea & Vomiting: Negative Mental Status: Baseline Respiratory Status: Airway Patent Hydration Status: Satisfactory Anesthesia Complications: None
[2025-07-09] MEDS: ACETAMINOPHEN 500 MG TABLET PO SCH (13:31)
[2025-07-09] MEDS: oxyCODONE 5 MG TABLET PO PRN (13:32)
[2025-07-09] MEDS ORDERED: SODIUM CHLORIDE FLUSH 0.9% 10 ML SYRINGE IVP PRN (16:39)
[2025-07-09] MEDS: SIMETHICONE CHEW 80 MG TABLET PO PRN (22:28)
[2025-07-10] MEDS: IBUPROFEN 600 MG TABLET PO SCH (04:16)
[2025-07-10] MEDS: oxyCODONE 5 MG TABLET PO PRN (04:53)
[2025-07-10 06:03] LABS: HCT - HEMATOCRIT 32.8 % (37.0-47.0); HGB - HEMOGLOBIN 10.6 g/dL (12.0-16.0); MEAN PLATELET VOLUME 10.3 fL (7.9-10.8); NRBC ABSOLUTE COUNT (AUTO) 0.00 x10^3/uL; NUCLEATED RED BLOOD CELLS AUTO 0.0 /100WBC; PLT - PLATELET COUNT 210 10^3/uL (130-450); RED CELL DISTRIBUTION WIDTH 14.6 % (12.0-15.0)
--- NOTE | 2025-07-10 09:14 | PROVIDER PROGRESS NOTE ---
Subjective Subjective Subjective: Subjective Patient reports she is doing well. Lochia appropriate. Denies heavy bleeding. Ambulating. Pelvic and abdominal pain well-controlled. Tolerating oral intake. Diet: Regular. Voiding without difficulty. Passing flatus. Denies BM. Patient is bonding with baby in room Breast feeding going well. I think that should be there is some primary care people to be all Denies feeling lightheaded, dizzy or excessively fatigued. Control: Status post bilateral tubal ligation Objective General: Alert, oriented, no apparent distress. Cardiovascular: Regular rate. Regular rhythm. Lungs: No increased work of breathing. Abdomen: Uterus firm. Below umbilicus. No guarding or rebound. Extremities: No pain on palpation. No cords palpated. Distal pulses intact. Incision: Wound VAC in place Current Medications Current Medications Current Medications: Current Medications Generic Name Dose Route Start Last Admin Trade Name Freq PRN Reason Stop Dose Admin Acetaminophen 1,000 mg 07/09/25 12:00 07/10/25 07:51 Acetaminophen 500 Mg Tablet PO 1,000 mg Q6HR STEPHANIE Administration Docusate Sodium 100 mg 07/10/25 09:00 Docusate Sodium 100 Mg Capsule PO DAILY STEPHANIE Enoxaparin Sodium 40 mg 07/10/25 09:00 Enoxaparin 40 Mg/0.4 Ml Syringe SUBQ DAILY STEPHANIE Lactated Ringer's 1,000 mls @ 125 mls/hr 07/09/25 06:00 07/09/25 11:09 Lr IV Infused .Q8H STEPHANIE Infusion Oxytocin/Sodium Chloride 500 mls @ 999 mls/hr 07/09/25 09:51 Pitocin/Sodium Chloride IV PRN PRN POST- HEMORR PREVENTION Protocol 999 MILLIUNIT/MIN Lactated Ringer's 1,000 mls @ 100 mls/hr 07/09/25 10:00 Lr IV .Q10H STEPHANIE Ibuprofen 600 mg 07/10/25 04:30 07/10/25 04:16 Ibuprofen 600 Mg Tablet PO 600 mg Q6H STEPHANIE Administration Ondansetron HCl 4 mg 07/09/25 09:51 Ondansetron Odt 4 Mg Tablet TL Q4HR PRN Nausea / Vomiting Oxycodone HCl 5 - 10 mg 07/10/25 04:39 07/10/25 04:53 Oxycodone 5 Mg Tablet PO 10 mg Q4HR PRN Administration Pain Polyethylene Glycol 17 gm 07/09/25 20:22 07/10/25 06:21 Polyethylene Glycol 3350 17 Gm Packet PO 17 gm DAILY PRN Administration Bowel Protocol Simethicone 80 mg 07/09/25 09:51 07/09/25 22:28 Simethicone Chew 80 Mg Tablet PO 80 mg TID PRN Administration Gas Sodium Chloride 10 ml 07/09/25 16:39 Sodium Chloride Flush 0.9% 10 Ml Syringe IVP PRN PRN NEEDED PER PROVIDER ORDERS Objective Vital Signs/Intake & Output Vital Signs: Vital Signs x48h Temp Pulse Resp BP Pulse Ox 07/10/25 08:05 36.6 C 65 16 112/56 L 07/10/25 08:00 36.6 C 65 16 112/56 L 07/10/25 04:00 36.7 C 66 18 126/64 97 Intake & Output: Intake & Output 07/07/25 07/08/25 07/09/25 07/10/25 23:59 23:59 23:59 23:59 Intake Total 5000 / 5000 Output Total 730 / 730 250 / 250 Balance 4270 / 4270 -250 / -250 Lab Results 07/10/25 05:53 Other Labs: Lab Results x24hrs 07/10/25 Range/Units 05:53 WBC 13.1 H (4.8-10.8) x10^3/uL RBC 3.55 L (4.20-5.40) 10^6/uL Hgb 10.6 L (12.0-16.0) g/dL Hct 32.8 L (37.0-47.0) % MCV 92.4 (81.0-99.0) fL MCH 29.9 (27.0-31.0) pg MCHC 32.3 (32.0-36.0) g/dL RDW 14.6 (12.0-15.0) % Plt Count 210 (130-450) 10^3/uL MPV 10.3 (7.9-10.8) fL Neut # (Auto) 10.9 H (1.5-6.6) 10^3/uL Lymph # (Auto) 1.1 L (1.5-3.5) 10^3/uL Castro # (Auto) 0.9 (0.0-1.0) 10^3/uL Eos # (Auto) 0.0 (0.0-0.7) 10^3/uL Baso # (Auto) 0.0 (0.0-0.1) 10^3/uL Absolute Nucleated RBC 0.00 x10^3/uL Nucleated RBC % 0.0 /100WBC Blood Type O NEGATIVE Weak D (Du) WEAK-D NEGATIVE Maternal Bleed NEGATIVE (NEGATIVE) Assessment/Plan Problem List (1) care following delivery: Impression: Routine postoperative care. Dissipate discharge tomorrow. Patient doing very well today. Do not anticipate problems. (2) Rh negative status during in first trimester: Impression: Rh workup per routine (3) Encounter for sterilization: Impression: Status post bilateral tubal ligation
[2025-07-10] MEDS: DOCUSATE SODIUM 100 MG CAPSULE PO SCH (09:34)
[2025-07-10] MEDS: ENOXAPARIN 40 MG/0.4 ML SYRINGE SUBQ SCH (09:34)
[2025-07-10] MEDS: RHO(D) IMMUNE GLOBULIN 300 MCG SYRINGE IVP ONE (10:47)
[2025-07-11 08:24] VITALS: BP 104/63; TEMP 97.5; O2SAT 98
--- NOTE | 2025-07-11 11:30 | Discharge Summary ---
"Discharge Summary Admit Date: 07/09/25 Discharge Date: 07/11/25 Discharging Provider: Debra Garg Primary Care Provider: Brenda Chatman Code Status: Attempt Resuscitation Discharge Facility Name: Home DIAGNOSES Admission Diagnoses: 1) Encounter for section 2) Encounter for sterilization 3) Maternal care for scar from previous delivery 4) Obesity complicating in third trimester 5) Rh negative status during Discharge Diagnoses with Status of Each Condition: 1) care following delivery - Routine care - Follow up in clinic at approximately 1 week post-op 2) Encounter for sterilization - S/p bilateral salpingectomy 3) Maternal care for scar from previous delivery - Discharged home with wound vac per patient request as it worked well after her last section - Follow up in clinic at approximately 1 week post-op for wound vac removal 4) Rh negative status during - Received RhoGam HPI History of Present Illness: Juan is a 34yoF now on POD#2 from repeat low-transverse section and bilateral salpingectomy at 39w2d. Complicated by hemorrhage with EBL 1000ml. She reports feeling good this morning. Pain is well controlled at 2-3/10. She has been ambulating without difficulty. She denies dysuria or hematuria. She had a BM yesterday and is continuing to pass flatus. Lochia is consistent with a mild period. She has been successfully and enjoying bonding time with Yvonne. CONSULTS | PROCEDURES Consultations: None. Procedures: 07/09: Repeat low-transverse section 07/09: Bilateral salpingectomy HOSPITAL COURSE Hospital Course: 07/09: Repeat low-transverse section and bilateral salpingectomy. Complicated by hemorrhage with EBL 1000ml. 07/10: Patient doing well. Routine care. 07/11: Discharge. ALLERGIES Allergies Allergy/AdvReac Type Severity Reaction Status Date / Time No Known Drug Allergies Allergy Verified 07/05/25 15:11 MEDICATIONS Ambulatory Orders Medication Instructions Recorded Confirmed vit no.95-ferrous 1 tab PO DAILY 12/12/22 fumarate 28 mg-folic acid 800 mcg tablet ferrous sulfate 325 mg (65 mg 325 mg PO BID #60 tabs 0 04/09/25 07/05/25 iron) tablet aspirin 81 mg chewable tablet 2 tab PO DAILY #90 tabs 05/28/25 07/05/25 acetaminophen 325 mg capsule 325 - 650 mg (1 - 2 x 325 mg) PO 07/11/25 Q4H PRN pain #60 caps docusate sodium 100 mg capsule 100 mg PO BID PRN const ipation #60 07/11/25 (Colace) caps ibuprofen 600 mg tablet 600 mg PO Q6H PRN pain #30 t abs 07/11/25 oxycodone 5 mg tablet 5 mg PO Q4H PRN pain #10 tab s 07/11/25 PHYSICAL EXAM AT DISCHARGE Vital Signs: Vital Signs x48h Temp Pulse Resp BP Pulse Ox 07/11/25 08:23 36.4 C L 74 18 104/63 98 General Appearance: positive No acute distress and Alert Eyes Bilateral: positive Normal inspection ENT: positive No signs of dehydration Neck: positive Nml inspection and Trachea midline Respiratory: positive No respiratory distress Cardiovascular: positive Regular rate & rhythm Abdomen: positive No distention, Tenderness (Appropriate tenderness to light palpation. ) and Other (Wound vac in place.); negative Guarding or Rebound Skin: positive Warm and Dry Extremities: positive No pedal edema Neurologic/Psychiatric: positive Oriented x3 and CN's nml (2-12) LABS 07/10/25 05:53 FOLLOW UP Follow Up: [facility] Tuesday or Tuesday (approximately 1 week post op) for routine check in and removal of wound vac. TIME SPENT Time Spent in Discharge (Minutes): 30 Discharge Plan Discharge Patient Disposition: LONGTERM, Self Care Condition: Good Medically Cleared Date:: 07/11/25 Prescriptions: Continued ferrous sulfate 325 mg (65 mg iron) tablet 325 mg PO BID Qty: 60 4RF aspirin 81 mg tablet,chewable 2 tab PO DAILY Qty: 90 2RF docusate sodium [Colace] 100 mg capsule 100 mg PO BID PRN (Reason: constipation) Qty: 60 1RF ibuprofen 600 mg tablet 600 mg PO Q6H PRN (Reason: pain) Qty: 30 1RF oxycodone 5 mg tablet 5 mg PO Q4H PRN (Reason: pain) Qty: 10 0RF acetaminophen 325 mg capsule 325 - 650 mg PO Q4H PRN (Reason: pain) Qty: 60 1RF PNV no.95-ferrous fumarate-FA 1 EACH tablet 1 tab PO DAILY Diet: Regular Assessment: Juan is a 34yoF now on POD#2 from repeat low-transverse section and bilateral salpingectomy at 39w2d. Complicated by hemorrhage with EBL 1000ml. Hemodynamically stable and ready to DC home. Plan of Treatment: 1) care following delivery - Routine care - Follow up in clinic at approximately 1 week post-op 2) Encounter for sterilization - S/p bilateral salpingectomy 3) Maternal care for scar from previous delivery - Discharged home with wound vac per patient request as it worked well after her last section - Follow up in clinic at approximately 1 week post-op for wound vac removal 4) Rh negative status during - Received RhoGam Print Language: Vietnamese Patient Instructions: Surg Dc Follow-up Care: Brenda Chatman CNM, [employer] [Primary Care Provider, Obstetrics/Gynecology] Report called to and time (if no answer, doc. time of each call attempted): no Vitals documented within 30 minutes of discharge?: Yes"
== END 2025-07-11 13:30 | disposition home or self-care (01) | DRG 784 ==
LOC: FBP 05:27
PROVIDERS: ADMIT Obstetrics & Gynecology; ATTEND Obstetrics & Gynecology